=== PATIENT | female | born 1985 | race Caucasian/White ===

== ENCOUNTER 2017-09-15 22:50 | Observation (INO) | payer OTHER ==
[2017-09-15 22:59] VITALS: RESP 16
[2017-09-16] MEDS ORDERED: NALOXONE 0.4 MG/ML 1 ML VIAL IV PRN (00:08)
--- NOTE | 2017-09-16 00:11 | ED ---
Female Urogenital HPI - General Source: patient Mode of arrival: ambulatory Limitations: no limitations - History of Present Illness Last Menstrual Period: 08/09/17 <Nichole Henderson - Last Filed: 09/16/17 00:30> <Gregory Rivas - Last Filed: 09/20/17 07:58> - General Chief complaint: Vaginal Bleeding Stated complaint: Ectopic Time Seen by Provider: 09/15/17 23:00 - History of Present Illness Initial comments: 32-year-old female patient presented to the emergency department today sent by [facility] for further evaluation of ectopic . Patient is A1, including current . Patient states she did undergo tubal ligation in 2017. Patient reports that she sought treatment at the [facility] today for evaluation of vaginal bleeding since 08/09/2017. Patient states that she has been having painless bleeding since that time. States it was like a normal period however it persisted longer than usual. Patient states that she did have an ultrasound that was concerning for ectopic so she was sent over to [facility] for further evaluation. Patient states she did undergo lab work and transvaginal/ transabdominal ultrasound which did show evidence of ectopic in the left adnexa. Patient Denies any abdominal pain. Denies any dizziness or weakness. Denies any passage of large clots or tissue. Denies any fevers or chills. Patient denies any recent rash, shortness breath, chest pain, abdominal pain, nausea, vomiting, diarrhea, constipation, back pain, numbness, tingling, hematuria, dysuria, urinary urgency, urinary frequency, headache, visual changes , or any other complaints. (Nichole Henderson) - Related Data Home Medications Medication Instructions Recorded Confirmed No Known Home Medications [No 09/15/17 09/15/17 Known Home Medications] Allergies Allergy/AdvReac Type Severity Reaction Status Date / Time No Known Allergies Allergy Verified 09/15/17 23:04 Review of Systems ROS Other: All systems not noted in ROS Statement are negative. <Nichole Henderson - Last Filed: 09/16/17 00:30> ROS Other: All systems not noted in ROS Statement are negative. <Gregory Rivas - Last Filed: 09/20/17 07:58> ROS Statement: Those systems with pertinent positive or pertinent negative responses have been documented in the HPI. Past Medical History Additional Past Medical History / Comment(s): ectopic 2018 History of Any Multi-Drug Resistant Organisms: None Reported Past Surgical History: Section, Tubal Ligation Past Psychological History: No Psychological Hx Reported Smoking Status: Current every day smoker Past Alcohol Use History: None Reported Past Drug Use History: None Reported <Nichole Henderson - Last Filed: 09/16/17 00:30> General Exam Limitations: no limitations General appearance: alert, in no apparent distress, other (This is a well- developed, well-nourished adult female patient in no acute distress. Vital signs upon presentation are temperature 98.6F, pulse 103, respirations 16, blood pressure 124/59, pulse ox 100% on room air.) Eye exam: Present: normal appearance, PERRL, EOMI. Absent: scleral icterus, conjunctival injection, periorbital swelling ENT exam: Present: normal exam, normal oropharynx, mucous membranes moist Respiratory exam: Present: normal lung sounds bilaterally. Absent: respiratory distress, wheezes, rales, rhonchi, stridor Cardiovascular Exam: Present: regular rate, normal rhythm, normal heart sounds. Absent: systolic murmur, diastolic murmur, rubs, gallop, clicks GI/Abdominal exam: Present: soft, normal bowel sounds. Absent: distended, tenderness, guarding, rebound, rigid Neurological exam: Present: alert, oriented X3, CN II-XII intact Psychiatric exam: Present: normal affect, normal mood Skin exam: Present: warm, dry, intact, normal color. Absent: rash <Nichole Henderson - Last Filed: 09/16/17 00:30> Vital Signs 09/15/17 22:54 Temperature 98.6 F Pulse Rate 103 H Respiratory 16 Rate Blood Pressure 124/59 O2 Sat by Pulse 100 Oximetry Medical Decision Making <Nichole Henderson - Last Filed: 09/16/17 00:30> - Lab Data Result diagrams: 09/16/17 07:39 09/16/17 07:39 <Gregory Rivas - Last Filed: 09/20/17 07:58> - Medical Decision Making 32-year-old female patient was transferred here from [facility] for further evaluation of ectopic . Physical examination is unremarkable. Abdomen is soft and nontender. Reports from [facility]'s physician indicate that patient's pelvic examination was unremarkable other than vaginal bleeding. Patient denied any adnexal tenderness during the exam. We did review reports from [facility]: patient's quantitative hCG level was 8096. Hgb/Hct WNL. Ultrasound done today shows gestational sac measuring 16 mm in the left adnexa with a crown-rump length of 7 weeks 1 day or 1 cm. There is no free fluid in the pelvis. Patient vital signs are stable. My attending Dr. Rivas did speak to Dr. Fuentes who agrees to admission. Patient will be kept NPO. Labs will be repeated in the morning. IV fluids provided. (Nichole Henderson) I saw this patient in conjunction with the physician care management assistant. I performed independent history and physical exam. Agree with case management. (Gregory Rivas) Disposition Decision to Admit Reason: Admit from EC Decision Date: 09/16/17 Decision Time: 00:11 <Nichole Henderson - Last Filed: 09/16/17 00:30> <Gregory Rivas - Last Filed: 09/20/17 07:58> Clinical Impression: Ectopic Disposition: ADMITTED IP TO THIS [facility] Condition: Serious
[2017-09-16] MEDS ORDERED: SODIUM CHLORIDE 0.9% 1,000 ML IV SCH (00:15)
[2017-09-16 05:53] VITALS: BP 113/57; PULSE 86; TEMP 97.3; BMI 25.8
[2017-09-16 08:06] LABS: HGB 12.1 gm/dL (11.4-16.0); MCH 29.4 pg (25.0-35.0); MCHC 32.8 g/dL (31.0-37.0); MCV 89.8 fL (80.0-100.0); Mean Platelet Volume 8.8; Platelet Count 181 k/uL (150-450); RBC 4.12 m/uL (3.80-5.40); RDW 12.4 % (11.5-15.5); WBC 5.7 k/uL (3.8-10.6)
[2017-09-16 08:14] LABS: ALT 25 U/L (9-52); AST 16 U/L (14-36); Albumin 3.9 g/dL (3.5-5.0); Alkaline Phosphatase 53 U/L (38-126); Anion Gap 10 mmol/L; Blood Urea Nitrogen 13 mg/dL (7-17); Carbon Dioxide 27 mmol/L (22-30); Chloride 107 mmol/L (98-107); Glucose 90 mg/dL (74-99); Potassium 4.1 mmol/L (3.5-5.1); Sodium 144 mmol/L (137-145); Total Bilirubin 0.4 mg/dL (0.2-1.3); Total Protein 6.1 g/dL (6.3-8.2)
[2017-09-16 08:30] LABS: HCG,Quantitative Serum 4834.7 mIU/mL
--- NOTE | 2017-09-16 09:19 | P.HPOB ---
History of Present Illness H&P Date: 09/16/17 Chief Complaint: Vaginal bleeding, ectopic This is a 32-year-old 5 para 3013 woman with a one-month history of vaginal bleeding. [facility] She was initially evaluated at [facility] at which time she was found to have a beta hCG level of 8096, hemoglobin 13.4. Her history is significant for bilateral tubal ligation at the time of section in 2006. She was transferred to a clear in [facility] for further evaluation and treatment. This morning she reports decreasing vaginal bleeding. She denies abdominal pain , pelvic pain, fevers, chills, nausea, vomiting, dizziness or fatigue. She is hungry. Pelvic ultrasound dated 09/15/2017 shows a uterus measuring 10.1 x 4.8 x 5.7 cm. Right ovary measures 2.2 cm. Left ovary has a 3.5 x 2.7 x 2 cm complex cystic structure with a 10 mm pole. No heart tones. There is no free fluid noted in the pelvis. There is no evidence of intrauterine . This morning her hCG has decreased to approximately 4400. Her hemoglobin remained stable. Review of Systems All systems: negative Past Medical History Past Medical History: No Reported History Additional Past Medical History / Comment(s): ectopic 2018 History of Any Multi-Drug Resistant Organisms: None Reported Past Surgical History: Section, Tubal Ligation Additional Past Surgical History / Comment(s): section 3. Tubal ligation Past Anesthesia/Blood Transfusion Reactions: No Reported Reaction Past Psychological History: No Psychological Hx Reported Smoking Status: Current every day smoker Past Alcohol Use History: None Reported Past Drug Use History: None Reported - Past Family History Father Family Medical History: No Reported History Medications and Allergies Home Medications Medication Instructions Recorded Confirmed Type No Known Home Medications [No 09/15/17 09/15/17 History Known Home Medications] Allergies Allergy/AdvReac Type Severity Reaction Status Date / Time No Known Allergies Allergy Verified 09/15/17 23:04 Exam - Vital Signs Vital signs: Vital Signs Temp Pulse Pulse Resp BP BP Pulse Ox 09/16/17 00:30 97.3 F L 86 16 113/57 100 09/15/17 22:54 98.6 F 103 H 16 124/59 100 Intake and Output 09/15/17 09/16/17 09/16/17 22:59 06:59 14:59 Other: Weight 79.379 kg 79.379 kg This is a very pleasant, comfortable appearing female in no obvious distress. HEENT exam is unremarkable. The lungs are clear and her breathing is unlabored. The heart is of regular rate and rhythm. The abdomen is slim, soft and nontender in all 4 quadrants. There is no rebound, no guarding and no flank pain. She has no active vaginal bleeding. Pelvic examination is deferred. She has no gross neurologic deficits or skin rashes. Results Result Diagrams: 09/16/17 07:39 09/16/17 07:39 Abnormal Lab Results - Last 24 Hours (Table) 09/16/17 Range/Units 07:39 Total Protein 6.1 L (6.3-8.2) g/dL US - abdomen: report reviewed Assessment and Plan (1) Ectopic Current Visit: Yes Status: Acute Code(s): O00.90 - UNSPECIFIED ECTOPIC WITHOUT INTRAUTERINE SNOMED Code(s): 15608134 Plan: This is a 32-year-old 5 para 3013 woman with a left ectopic . She is clinically stable with no evidence of rupture or intra-abdominal bleeding. Her hCG levels have declined from greater than 8000 yesterday to approximately 4400 today. Her hemoglobin is stable. Her clinical exam is benign. The ectopic mass was 3.5 cm in greatest diameter by ultrasound. For these reasons I believe that she is a candidate for medical management of the ectopic with methotrexate. I discussed this in detail with the patient and her . Alternative treatment is laparoscopy with removal of left ectopic . Risks of methotrexate therapy include need for multiple doses of methotrexate, failure of methotrexate therapy, rupture of ectopic . I believe the risk of failure is approximately 10%. Risks of laparoscopy are standard and include bleeding, transfusion, infection, injury to internal structures. We discussed anticipated recovery and activity levels with each choice. Based on this discussion she and her have elected to proceed with methotrexate therapy. She can reliably follow up with all office visits and lab draws. She was counseled on the regarding anticipated side effects including abdominal cramping and nausea and some ongoing vaginal bleeding. She understands that she needs to return to the emergency room with any heavy vaginal bleeding, severe abdominal pain or dizziness or syncopal episodes. I do believe that she would be able to be compliant with outpatient medical management. Time with Patient: Greater than 30
[2017-09-16] MEDS ORDERED: METHOTREXATE SODIUM (PF) 25 MG/ML 2 ML VIAL IM ONE (09:30)
== END 2017-09-16 10:40 | disposition home or self-care (01) ==
LOC: EC 22:50 → 4FBP 09-16 00:22
PROVIDERS: ADMIT Obstetrics & Gynecology; ATTEND Obstetrics & Gynecology
DX: O00.102 Left tubal pregnancy without intrauterine pregnancy (principal); Z98.51 Tubal ligation status; F17.200 Nicotine dependence, unspecified, uncomplicated
CPT/HCPCS: 96372 ×2; 99284 ×2; 80053; 85027; 84702; G0378; J9260

== ENCOUNTER → 2017-09-22 | Outpatient (CLI) | payer SELFPAY ==
[2017-09-22 08:38] LABS: HCT 36.8 % (34.0-46.0); MCH 31.1 pg (25.0-35.0); MCHC 35.2 g/dL (31.0-37.0); MCV 88.2 fL (80.0-100.0); Mean Platelet Volume 8.4; Platelet Count 194 k/uL (150-450); RBC 4.17 m/uL (3.80-5.40); RDW 12.4 % (11.5-15.5); WBC 4.8 k/uL (3.8-10.6)
[2017-09-22 08:56] LABS: ALT 32 U/L (9-52); AST 21 U/L (14-36); Albumin 4.2 g/dL (3.5-5.0); Alkaline Phosphatase 49 U/L (38-126); Anion Gap 12 mmol/L; Blood Urea Nitrogen 10 mg/dL (7-17); Calcium 9.3 mg/dL (8.4-10.2); Carbon Dioxide 27 mmol/L (22-30); Chloride 102 mmol/L (98-107); Glucose 93 mg/dL (74-99); Potassium 4.3 mmol/L (3.5-5.1); Sodium 141 mmol/L (137-145); Total Bilirubin 0.4 mg/dL (0.2-1.3); Total Protein 6.6 g/dL (6.3-8.2)
[2017-09-22 09:09] LABS: HCG,Quantitative Serum 2047.7 mIU/mL
== END | disposition home or self-care (01) ==
LOC: LABWHC1 07:39
PROVIDERS: ATTEND Obstetrics & Gynecology
DX: O00.109 Unspecified tubal pregnancy without intrauterine pregnancy (principal); Z3A.00 Weeks of gestation of pregnancy not specified
CPT/HCPCS: 36415; 80053; 84702; 85027; 86850; 86900; 86901

== ENCOUNTER 2017-09-28 23:11 | Inpatient (IN) | payer OTHER ==
[2017-09-28] MEDS ORDERED: SODIUM CHLORIDE 0.9% 1,000 ML IV ONE ×2 (23:26)
[2017-09-28] MEDS ORDERED: ACETAMINOPHEN IV (For NPO) 1,000 MG in EMPTY BAG 1 BAG IVPB STA (23:31)
[2017-09-28] MEDS ORDERED: fentaNYL (PF) 50 MCG/ML 2 ML AMP IV STA (23:33)
--- NOTE | 2017-09-28 23:37 | ED ---
General Adult HPI - General Chief complaint: Abdominal Pain Stated complaint: Abdomial Pain Time Seen by Provider: 09/28/17 23:15 Source: patient, RN notes reviewed, old records reviewed Mode of arrival: EMS Limitations: no limitations - History of Present Illness Initial comments: This is a 32-year-old female for severe abdominal pain, patient coming in for evaluation regards to severe abdominal pain 1 hour prior to arrival. Patient has known ectopic , given methotrexate 2, ectopic is left-sided. Patient having nausea and vomiting as well 11. Patient did have follow-up appointment tomorrow, started with abdominal pain again 1 hour prior to arrival tonight severe. - Related Data Home Medications Medication Instructions Recorded Confirmed No Known Home Medications [No 09/15/17 09/15/17 Known Home Medications] Allergies Allergy/AdvReac Type Severity Reaction Status Date / Time No Known Allergies Allergy Verified 09/15/17 23:04 Review of Systems ROS Statement: Those systems with pertinent positive or pertinent negative responses have been documented in the HPI. ROS Other: All systems not noted in ROS Statement are negative. Past Medical History Past Medical History: No Reported History Additional Past Medical History / Comment(s): ectopic 2018 History of Any Multi-Drug Resistant Organisms: None Reported Past Surgical History: Section, Tubal Ligation Additional Past Surgical History / Comment(s): section 3. Tubal ligation Past Anesthesia/Blood Transfusion Reactions: No Reported Reaction Past Psychological History: No Psychological Hx Reported Smoking Status: Current every day smoker Past Alcohol Use History: None Reported Past Drug Use History: None Reported - Past Family History Father Family Medical History: No Reported History General Exam Limitations: no limitations General appearance: alert, anxious, in distress Head exam: Present: atraumatic, normocephalic, normal inspection Eye exam: Present: normal appearance, PERRL, EOMI. Absent: scleral icterus, conjunctival injection, periorbital swelling ENT exam: Present: normal exam, mucous membranes moist Neck exam: Present: normal inspection. Absent: tenderness, meningismus, lymphadenopathy Respiratory exam: Present: normal lung sounds bilaterally. Absent: respiratory distress, wheezes, rales, rhonchi, stridor Cardiovascular Exam: Present: normal rhythm, tachycardia, normal heart sounds. Absent: systolic murmur, diastolic murmur, rubs, gallop, clicks GI/Abdominal exam: Present: distended, tenderness, guarding, normal bowel sounds. Absent: rebound, rigid Extremities exam: Present: normal inspection, full ROM, normal capillary refill. Absent: tenderness, pedal edema, joint swelling, calf tenderness Back exam: Present: normal inspection Neurological exam: Present: alert, oriented X3, CN II-XII intact Psychiatric exam: Present: normal affect, normal mood Skin exam: Present: warm, dry, intact, normal color. Absent: rash Course Vital Signs 09/28/17 09/28/17 09/28/17 23:15 23:40 23:47 Temperature 95.5 F L 97.8 F Pulse Rate 91 68 Respiratory 26 H 20 Rate Blood Pressure 85/52 113/64 O2 Sat by Pulse 100 100 Oximetry 09/28/17 09/29/17 23:57 00:27 Temperature 95.0 F L Pulse Rate 62 76 Respiratory 18 16 Rate Blood Pressure 101/62 97/55 O2 Sat by Pulse 100 100 Oximetry - Reevaluation(s) Reevaluation #1: 0000 Spoke with on-call DIRECTOR OF MARKETING, Dr. Scanlon for Dr. Fuentes, aware of patient, RN way into emergency room to see patient for evaluation. High likelihood ruptured ectopic Reevaluation #2: 09/29/17 00:28 Ultrasound evaluation being done at bedside, positive free fluid Reevaluation #3: 09/29/17 00:28 Operating room team is called in to ER as well as speaking with on-call anesthesiology EKG Findings - EKG Comments: EKG Findings:: EKG shows normal sinus rhythm rate of 65, AR 126, QRS 62, QTc 445 Medical Decision Making - Medical Decision Making 32 female the ER for evaluation of severe abdominal pain, ruptured ectopic , patient will be taken to operating room, blood pressure is labile, patient given fluid bolus here in the ER, type and screen ordered, current hemoglobin 12 - Lab Data Result diagrams: 09/28/17 23:40 09/28/17 23:27 Lab Results 09/28/17 09/28/17 09/28/17 Range/Units 23:27 23:27 23:40 WBC 13.2 H (3.8-10.6) k/uL RBC 4.00 (3.80-5.40) m/uL Hgb 12.0 (11.4-16.0) gm/dL Hct 35.4 (34.0-46.0) % MCV 88.3 (80.0-100.0) fL MCH 30.1 (25.0-35.0) pg MCHC 34.1 (31.0-37.0) g/dL RDW 12.6 (11.5-15.5) % Plt Count 225 (150-450) k/uL Neutrophils % 76 % Lymphocytes % 18 % Monocytes % 3 % Eosinophils % 2 % Basophils % 0 % Neutrophils # 10.0 H (1.3-7.7) k/uL Lymphocytes # 2.4 (1.0-4.8) k/uL Monocytes # 0.4 (0-1.0) k/uL Eosinophils # 0.3 (0-0.7) k/uL Basophils # 0.0 (0-0.2) k/uL PT 10.3 (9.0-12.0) sec INR 1.1 (<1.2) APTT 21.8 L (22.0-30.0) sec Sodium 143 (137-145) mmol/L Potassium 4.5 (3.5-5.1) mmol/L Chloride 106 (98-107) mmol/L Carbon Dioxide 22 (22-30) mmol/L Anion Gap 15 mmol/L BUN 18 H (7-17) mg/dL Creatinine 0.70 (0.52-1.04) mg/dL Est GFR (CKD-EPI)AfAm >90 (>60 ml/min/1.73 sqM) Est GFR (CKD-EPI)NonAf >90 (>60 ml/min/1.73 sqM) Glucose 168 H (74-99) mg/dL Calcium 9.7 (8.4-10.2) mg/dL Total Bilirubin 0.2 (0.2-1.3) mg/dL AST 18 (14-36) U/L ALT 30 (9-52) U/L Alkaline Phosphatase 62 (38-126) U/L Total Protein 6.3 (6.3-8.2) g/dL Albumin 4.1 (3.5-5.0) g/dL HCG, Quant 646.1 mIU/mL - Radiology Data Radiology results: report reviewed (Ultrasound positive positive free fluid), image reviewed Critical Care Time Critical Care Time: Yes Total Critical Care Time: 31 Disposition Clinical Impression: Ectopic , Ruptured ectopic Disposition: ADMITTED IP TO THIS HOSP Condition: Critical Referrals: None,Stated [Primary Care Provider] - 1-2 days
[2017-09-28 23:46] LABS: Basophils % (A) 0 %; Eosinophils # (A) 0.3 k/uL (0-0.7); Eosinophils % (A) 2 %; HCT 35.4 % (34.0-46.0); Lymphocytes # (A) 2.4 k/uL (1.0-4.8); Lymphocytes % (A) 18 %; MCH 30.1 pg (25.0-35.0); MCHC 34.1 g/dL (31.0-37.0); MCV 88.3 fL (80.0-100.0); Mean Platelet Volume 8.9; Monocytes # (A) 0.4 k/uL (0-1.0); Monocytes % (A) 3 %; Neutrophils % (A) 76 %; Platelet Count 225 k/uL (150-450); RDW 12.6 % (11.5-15.5); WBC 13.2 k/uL (3.8-10.6)
[2017-09-29 00:02] LABS: ALT 30 U/L (9-52); AST 18 U/L (14-36); Albumin 4.1 g/dL (3.5-5.0); Anion Gap 15 mmol/L; Blood Urea Nitrogen 18 mg/dL (7-17); Calcium 9.7 mg/dL (8.4-10.2); Carbon Dioxide 22 mmol/L (22-30); Chloride 106 mmol/L (98-107); Glucose 168 mg/dL (74-99); Potassium 4.5 mmol/L (3.5-5.1); Sodium 143 mmol/L (137-145); Total Bilirubin 0.2 mg/dL (0.2-1.3); Total Protein 6.3 g/dL (6.3-8.2)
[2017-09-29 00:13] LABS: INR 1.1 (<1.2); Prothrombin Time 10.3 sec (9.0-12.0)
[2017-09-29 00:16] LABS: Alkaline Phosphatase 62 U/L (38-126)
[2017-09-29 00:18] LABS: HCG,Quantitative Serum 646.1 mIU/mL
[2017-09-29 00:19] LABS: Partial Thromboplastin Time 21.8 sec (22.0-30.0)
--- NOTE | 2017-09-29 00:53 | US ---
EXAMINATION TYPE: US transvaginal DATE OF EXAM: 09/29/2017 COMPARISON: NONE CLINICAL HISTORY: Pain. Pain and bleeding since 08/09/2017 had a positive lt ectopic on 09/15/2017 [facility]. Came to here next day and given 2 doses of methotrexate. TECHNIQUE: Transvaginal (TV). EXAM MEASUREMENTS: Uterus: 9.2 x 4.6 x 5.3 cm Endometrial Stripe: Borders ill defined cm 1. Uterus: Anteverted 2. Endometrium: Obscured by overlying bowel gas 3. Right Ovary: Obscured by overlying bowel gas 4. Left Ovary: Obscured by overlying bowel gas 5. Bilateral Adnexa: Excessive bowel visualized 6. Posterior cul-de-sac: Fluid visualized. Bilateral ovaries not seen due to overlying bowel gas. IMPRESSION: No adnexal mass or free fluid. No evidence of uterine mass. Endometrial stripe is poorly defined and this could relate to the presence of fibroids.
[2017-09-29] MEDS ORDERED: SODIUM CHLORIDE 0.9% 1,000 ML IV ONE ×2 (01:11→01:15)
--- NOTE | 2017-09-29 01:14 | P.HPOB ---
History of Present Illness H&P Date: 09/29/17 Chief Complaint: severe abdomenal pain This is a 32-year-old 5 para 3013 with a known left ectopic diagnosed 2 weeks ago at another institution. Patient was treated with methotrexate protocol. She presents with severe global abdominal pain which began at approximately 9:30 PM, and was accompanied by emesis. The pain as 10 out of 10. She has had intermittent vaginal bleeding almost constantly since August 09. She is lightheaded and dizzy. Past medical history is essentially negative. Past surgical history significant for section 2003, 2005, 2006 with tubal ligation at another institution. In addition she has had a D&C in the past for miscarriage. Current medications none. ALLERGIES none known. Social history patient smoked for approximately 10 years one to one half pack per day. 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 She denies alcohol or drug use. Family history is essentially noncontributory. On exam this is a pleasant white female, 5 foot 9 inches, 170 pounds, blood pressure 97/55, pulse 76. The general physical exam reveals 2 tattoos, 1 on the anterior left rib cage and one on the right wrist. She has pierced ears but no other body piercings. HEENT exam is negative. Chest is clear in all huerta anteriorly and posteriorly. Cardiac exam reveals regular rate and rhythm. The abdomen is distended, rigid, with rebound and guarding. Extremities reveal no edema, there are good peripheral pulses. Hemoglobin is 12. Ultrasound at the bedside reveals evidence of intraperitoneal fluid, good blood flow and anatomy on the right ovary, left adnexal region consistent with ruptured ectopic. Uterus is unremarkable sonographically. Impression: Suspected ruptured left ectopic with surgical abdomen, suspect hemoperitoneum. Plan: I discussed with the patient and her Judd the urgent nature of her situation. We will proceed with exploratory laparotomy, possible left salpingotomy, possible left salpingectomy, possible left salpingo-oophorectomy. I will perform an exam of the right tube and re-ligate it if needed. Patient is aware of the risks of surgery to include but not be exclusive of bleeding, infection, perforation or damage to bowel, bladder, blood vessels, ureters or any other pelvic or abdominal organs. The risks of anesthesia including aspiration, nerve damage and have all been reviewed. The risks of blood transfusion have also been discussed, potential exposure to infectious diseases including hepatitis and HIV are unlikely but possible. All questions have been answered. Operating room team has been called and are present, anesthesia aware. Review of Systems Constitutional: Reports as per HPI Past Medical History Past Medical History: No Reported History Additional Past Medical History / Comment(s): ectopic 2018 History of Any Multi-Drug Resistant Organisms: None Reported Past Surgical History: Section, Tubal Ligation Additional Past Surgical History / Comment(s): section 3. Tubal ligation Past Anesthesia/Blood Transfusion Reactions: No Reported Reaction Past Psychological History: No Psychological Hx Reported Smoking Status: Current every day smoker Past Alcohol Use History: None Reported Past Drug Use History: None Reported - Past Family History Father Family Medical History: No Reported History Medications and Allergies Home Medications Medication Instructions Recorded Confirmed Type No Known Home Medications [No 09/15/17 09/15/17 History Known Home Medications] Allergies Allergy/AdvReac Type Severity Reaction Status Date / Time No Known Allergies Allergy Verified 09/15/17 23:04 Exam - Vital Signs Vital signs: Vital Signs Temp Pulse Resp BP Pulse Ox 09/29/17 00:55 87 18 90/52 94 L 09/29/17 00:27 95.0 F L 76 16 97/55 100 09/28/17 23:57 62 18 101/62 100 09/28/17 23:47 68 20 113/64 100 09/28/17 23:40 97.8 F 09/28/17 23:15 95.5 F L 91 26 H 85/52 100 Intake and Output 09/28/17 09/28/17 09/29/17 14:59 22:59 06:59 Other: Voiding Method Toilet Weight 77.111 kg See dictation under HPI please Results Result Diagrams: 09/28/17 23:40 09/28/17 23:27 Abnormal Lab Results - Last 24 Hours (Table) 09/28/17 09/28/17 09/28/17 Range/Units 23:27 23:27 23:27 WBC (3.8-10.6) k/uL Neutrophils # (1.3-7.7) k/uL APTT 21.8 L (22.0-30.0) sec BUN 18 H (7-17) mg/dL Glucose 168 H (74-99) mg/dL Crossmatch See Detail 09/28/17 Range/Units 23:40 WBC 13.2 H (3.8-10.6) k/uL Neutrophils # 10.0 H (1.3-7.7) k/uL APTT (22.0-30.0) sec BUN (7-17) mg/dL Glucose (74-99) mg/dL Crossmatch Assessment and Plan Plan: Exploratory laparotomy, surgery is indicated, please see details under dictation. Time with Patient: Less than 30
[2017-09-29] MEDS ORDERED: fentaNYL (PF) 50 MCG/ML 2 ML AMP ONE (01:15)
[2017-09-29] MEDS ORDERED: ROCURONIUM BROMIDE 10 MG/ML 10 ML VIAL IV ONE (01:15)
[2017-09-29] MEDS ORDERED: ALBUMIN HUMAN 5% 250 ML BOTTLE IVPB ONE (01:15)
[2017-09-29] MEDS ORDERED: LIDOCAINE 1% INJ 10MG/ML (20 ML MDV) ONE (01:15)
[2017-09-29] MEDS ORDERED: SUCCINYLCHOLINE CHLORIDE 100 MG/5 ML SYR IV ONE (01:15)
[2017-09-29] MEDS ORDERED: NEOSTIGMINE 1 MG/ML 10 ML VIAL ONE (01:15)
[2017-09-29] MEDS ORDERED: SODIUM CHLORIDE 0.9% 800 ML IV ONE (01:15)
[2017-09-29] MEDS ORDERED: PROPOFOL 10 MG/ML 20 ML VIAL IV ONE (01:15)
[2017-09-29] MEDS ORDERED: MIDAZOLAM 2 MG/2 ML VIAL ONE (01:15)
[2017-09-29] MEDS ORDERED: ceFAZolin 1,000 MG VIAL ONE (01:15)
[2017-09-29] MEDS ORDERED: GLYCOPYRROLATE 0.2 MG/ML 2 ML VIAL ONE (01:15)
[2017-09-29] MEDS ORDERED: SODIUM CHLORIDE 0.9% 100 ML with ceFAZolin 2,000 MG IV ONE ×2 (01:20)
[2017-09-29] MEDS ORDERED: LACTATED RINGERS 1,000 ML IV ONE ×3 (01:20→02:59)
[2017-09-29] MEDS ORDERED: ONDANSETRON 4 MG/2 ML VIAL IVP ONE (02:11)
[2017-09-29] MEDS ORDERED: ONDANSETRON 4 MG/2 ML VIAL IVP PRN (02:13)
[2017-09-29] MEDS ORDERED: IBUPROFEN 600 MG TAB PO PRN (02:13)
[2017-09-29] MEDS ORDERED: diphenhydrAMINE 50 MG/ML 1 ML VIAL IVP PRN (02:13)
[2017-09-29] MEDS ORDERED: METOCLOPRAMIDE 5 MG/ML 2 ML VIAL IVP PRN (02:13)
--- NOTE | 2017-09-29 02:13 | P.OP ---
Date of Procedure: 09/29/17 Preoperative Diagnosis: Suspected ruptured left ectopic Postoperative Diagnosis: Ruptured left ectopic , hemoperitoneum Procedure(s) Performed: Exploratory laparotomy, copious irrigation of the pelvis and abdomen, left salpingectomy area Surgeon: Lori Prince Senior Software Quality Analyst #1: Haroon Helton Estimated Blood Loss (ml): 2,000 IV fluids (ml): 2,000 Urine output (ml): 100 Pathology: other (Left fallopian tube) Condition: stable Disposition: PACU Description of Procedure: Patient is brought to the operating room where a general anesthetic is administered. She is given 2 g of Kefzol prophylactically. The abdomen is prepped and draped in usual sterile fashion, Rutledge placed to direct drainage. The appropriate timeout is performed to assure proper patient and procedural identification. A low transverse skin incision is made over the site of the previous section scar. This was taken down to the subcutaneous tissue to the fascia. Fascia is isolated, scored and extended bilaterally with curved Goss scissors. The peritoneum is next identified and incised. Upon opening the peritoneal cavity a large amount of blood and clot is encountered. This is suctioned and evacuated. The uterus is identified, and a [place] clamp is used on the left round ligament. The left fallopian tube is brought into the operative suite and is noted to have a ruptured ectopic. It was clamped across with Juanito clamps and removed in its entirety, and sent to pathology. 0 Vicryl suture is used on the pedicle for excellent reapproximation and hemostasis. The left ovary appears normal to inspection. The uterus itself is small, smooth, and unremarkable. Inspection of the right tube reveals a missing portion of tube, consistent with history of previous tubal ligation. The right ovary also appears normal. The pelvis is now generously irrigated with sterile saline. A total estimated blood loss of 2000 mL is noted. The left adnexal region is once again visualized and noted to be hemostatically intact. Peritoneum was allowed to close by secondary intention. Fascia is closed in a running stitch of 0 Vicryl suture. Subcutaneous tissue is clean and dry. The skin is closed with 4-0 undyed Monocryl. Steri-Strips and Mastisol are applied to the wound. Patient's vital signs are stable upon leaving the operating room , pulse 63, blood pressure 94/49, 100% O2 saturation. All sponge needle and enhancement counts are correct at the end of the procedure. Patient is given Toradol in recovery room. Hemoglobin is ordered in recovery room as well, 2 units of blood are typed and ready to administer if needed. Albumin is given prior to leaving the OR per the anesthesia staff.
[2017-09-29] MEDS ORDERED: NALOXONE 0.4 MG/ML 1 ML VIAL IV PRN (02:22)
[2017-09-29] MEDS ORDERED: KETOROLAC 30 MG/ML 1 ML VIAL IVP ONE (02:22)
[2017-09-29] MEDS ORDERED: MORPHINE PCA 30 MG/30 ML SYRINGE IV PRN (02:22)
[2017-09-29] MEDS: MEPERIDINE 50 MG/ML SYRINGE IVP ONE ×2 (02:42→02:52)
[2017-09-29 02:47] LABS: HCT 21.7 % (34.0-46.0); MCH 30.2 pg (25.0-35.0); MCHC 32.6 g/dL (31.0-37.0); MCV 92.5 fL (80.0-100.0); Mean Platelet Volume 8.9; Platelet Count 136 k/uL (150-450); RBC 2.35 m/uL (3.80-5.40); RDW 12.6 % (11.5-15.5); WBC 12.8 k/uL (3.8-10.6)
[2017-09-29 02:57] LABS: HGB 7.1 gm/dL (11.4-16.0)
[2017-09-29 04:38] LABS: Appearance,Urine Clear (Clear); Bilirubin,Urine Negative (Negative); Blood,Urine Negative (Negative); Color,Urine Yellow; Glucose,Urine (UA) Negative (Negative); Ketones,Urine 1+ (Negative); Leukocyte Esterase,Urine Negative (Negative); Nitrite,Urine Negative (Negative); PH, Urine 5.5 (5.0-8.0); Protein,Urine Trace (Negative); Specific Gravity,Urine 1.027 (1.001-1.035); Urobilinogen,Urine <2.0 mg/dL (<2.0)
--- NOTE | 2017-09-29 08:08 | P.PN ---
Subjective Progress Note Date: 09/29/17 Patient very nauseated, still lightheaded. Objective - Vital Signs Vital signs: Vital Signs Temp 97.7 F 09/29/17 06:08 Pulse 78 09/29/17 06:08 Resp 18 09/29/17 06:08 BP 114/65 09/29/17 05:38 Pulse Ox 100 09/29/17 06:08 Intake & Output 09/28/17 09/29/17 09/29/17 18:59 06:59 18:59 Intake Total 2840 Output Total 2200 Balance 640 Weight 77.111 kg Intake: IV 2600 Oral 240 Output: Urine 200 Estimated Blood Loss 2000 Other: Voiding Method Indwelling Catheter - Constitutional General appearance: Present: average body habitus, cooperative - EENT Eyes: Present: PERRLA ENT: Present: hearing grossly normal - Neck Neck: Present: normal ROM - Respiratory Respiratory: bilateral: CTA - Cardiovascular Rhythm: regular - Gastrointestinal General gastrointestinal: Present: decreased bowel sounds - Integumentary Integumentary Comment(s): Incision clean and dry, intact. - Neurologic Neurologic: Present: CNII-XII intact - Musculoskeletal Musculoskeletal: Present: generalized weakness - Psychiatric Psychiatric: Present: A&O x's 3, appropriate affect, intact judgment & insight - Labs CBC & Chem 7: 09/29/17 02:25 09/28/17 23:27 Labs: Abnormal Lab Results - Last 24 Hours (Table) 09/28/17 09/28/17 09/28/17 Range/Units 23:27 23:27 23:27 WBC (3.8-10.6) k/uL RBC (3.80-5.40) m/uL Hgb (11.4-16.0) gm/dL Hct (34.0-46.0) % Plt Count (150-450) k/uL Neutrophils # (1.3-7.7) k/uL APTT 21.8 L (22.0-30.0) sec BUN 18 H (7-17) mg/dL Glucose 168 H (74-99) mg/dL Urine Protein (Negative) Urine Ketones (Negative) Crossmatch See Detail 09/28/17 09/29/17 09/29/17 Range/Units 23:40 02:25 04:05 WBC 13.2 H 12.8 H (3.8-10.6) k/uL RBC 2.35 L (3.80-5.40) m/uL Hgb 7.1 L D (11.4-16.0) gm/dL Hct 21.7 L (34.0-46.0) % Plt Count 136 L (150-450) k/uL Neutrophils # 10.0 H (1.3-7.7) k/uL APTT (22.0-30.0) sec BUN (7-17) mg/dL Glucose (74-99) mg/dL Urine Protein Trace H (Negative) Urine Ketones 1+ H (Negative) Crossmatch Assessment and Plan Plan: Recheck CBC 6 hours prior to the last blood draw. Consider transfusion of packed red blood cells pending patient's progress this morning. Advance activity. Time with Patient: Less than 30
[2017-09-29 10:33] LABS: Basophils % (A) 0 %; Eosinophils # (A) 0.1 k/uL (0-0.7); Eosinophils % (A) 1 %; HCT 21.8 % (34.0-46.0); HGB 7.1 gm/dL (11.4-16.0); Lymphocytes # (A) 0.7 k/uL (1.0-4.8); Lymphocytes % (A) 6 %; MCH 30.3 pg (25.0-35.0); MCHC 32.9 g/dL (31.0-37.0); MCV 92.3 fL (80.0-100.0); Mean Platelet Volume 8.4; Monocytes # (A) 0.3 k/uL (0-1.0); Monocytes % (A) 3 %; Neutrophils # (A) 9.4 k/uL (1.3-7.7); Neutrophils % (A) 89 %; Platelet Count 162 k/uL (150-450); RBC 2.36 m/uL (3.80-5.40); RDW 12.5 % (11.5-15.5); WBC 10.6 k/uL (3.8-10.6)
[2017-09-29] MEDS: Acetaminophen-Codeine 300-30mg TAB PO PRN ×2 (14:08→20:40)
[2017-09-29] MEDS: KETOROLAC 30 MG/ML 1 ML VIAL IVP PRN (16:47)
[2017-09-30] MEDS: KETOROLAC 30 MG/ML 1 ML VIAL IVP PRN ×2 (00:01→06:25)
[2017-09-30 00:15] LABS: Basophils % (A) 0 %; Eosinophils # (A) 0.1 k/uL (0-0.7); Eosinophils % (A) 1 %; HCT 20.1 % (34.0-46.0); Lymphocytes # (A) 2.1 k/uL (1.0-4.8); Lymphocytes % (A) 22 %; MCH 30.1 pg (25.0-35.0); MCHC 33.7 g/dL (31.0-37.0); MCV 89.3 fL (80.0-100.0); Monocytes # (A) 0.5 k/uL (0-1.0); Monocytes % (A) 5 %; Neutrophils # (A) 6.7 k/uL (1.3-7.7); Neutrophils % (A) 71 %; Platelet Count 132 k/uL (150-450); RBC 2.25 m/uL (3.80-5.40); RDW 12.9 % (11.5-15.5); WBC 9.4 k/uL (3.8-10.6)
[2017-09-30 00:29] LABS: HGB 6.8 gm/dL (11.4-16.0)
[2017-09-30] MEDS: Acetaminophen-Codeine 300-30mg TAB PO PRN ×2 (04:42→08:54)
[2017-09-30 07:55] LABS: Basophils % (A) 0 %; Eosinophils # (A) 0.2 k/uL (0-0.7); Eosinophils % (A) 3 %; Lymphocytes # (A) 2.1 k/uL (1.0-4.8); Lymphocytes % (A) 33 %; MCH 29.9 pg (25.0-35.0); MCHC 33.6 g/dL (31.0-37.0); Mean Platelet Volume 8.8; Monocytes # (A) 0.4 k/uL (0-1.0); Monocytes % (A) 5 %; Neutrophils # (A) 3.7 k/uL (1.3-7.7); Neutrophils % (A) 58 %; Platelet Count 128 k/uL (150-450); RBC 2.24 m/uL (3.80-5.40); RDW 12.9 % (11.5-15.5); WBC 6.5 k/uL (3.8-10.6)
[2017-09-30 08:06] LABS: HCT 19.9 % (34.0-46.0); HGB 6.7 gm/dL (11.4-16.0)
--- NOTE | 2017-09-30 09:02 | P.DS ---
Providers Date of admission: 09/29/17 01:11 Expected date of discharge: 09/30/17 Attending physician: Lori Prince Primary care physician: Stated None Hospital Course: This is a 32-year-old white female 4 para 3013, status post tubal ligation in 2006. Patient presented to another institution 2 weeks ago with a left ectopic , and was treated with methotrexate IM. She had followed the protocol since that time, and beta hCG levels have been declining. However , she presented to our hospital with acute abdominal and pelvic pain, and hemoperitoneum noted sonographically. Diagnosis of ruptured ectopic was made and she was brought to the operating room for exploratory laparotomy. Please see my admitting history and physical for details. Patient was noted to have at least 2 L of blood and clot in the pelvis with a ruptured left ectopic . The left tube was removed without difficulty. The right tube was visualized and noted to be well ligated with at least a 1 inch missing segment. Patient did well intraoperatively. Postoperatively however, she was noted to be quite anemic with a hemoglobin of 7.1, decreased from 12 on admission. In addition, she was lightheaded and dizzy. One unit of packed red blood cells was given. She responded well to the blood products. This morning the incision is clean and dry, intact with Steri-Strips applied. The abdomen is rubber mill tender, however there is no rebound or guarding. She is feeling stronger, and steady on her feet. She is tolerating regular food and passing flatus. She has showered. Her chest is clear in all huerta in the extremities reveal a very scant amount of edema, likely secondary to the fluid hydration given postoperatively. Patient is judged to be in good condition for discharge home. She will use [id number]-[id number] ibuprofen products as needed for pain, 200 mg pills, 3 every 6 hours as needed. This may be alternated with extra strength Tylenol, 2 pills every 4-6 hours. I've asked her to call me with any lightheadedness or dizziness, with any redness or drainage of the incision, or with any difficulties or concerns. She will follow-up with me in the office in 2 weeks and will call for that appointment. She will continue take an iron supplement daily as well as a woman's multivitamin. No driving, no intercourse , no heavy lifting for 2 weeks. Patient Condition at Discharge: Good Plan - Discharge Summary Discharge Rx Participant: No New Discharge Prescriptions: No Action Ibuprofen [Motrin Ib] 800 mg PO Q6H PRN PRN Reason: Pain Primatene Tabs 2 tab PO DAILY Discharge Medication List Ibuprofen [Motrin Ib] 800 mg PO Q6H PRN 09/29/17 [History] Primatene Tabs 2 tab PO DAILY 09/29/17 [History] Follow up Appointment(s)/Referral(s): Lori Prince MD [STAFF PHYSICIAN] - 2 Weeks None,Stated [Primary Care Provider] - 1-2 Days
[2017-09-30 11:12] VITALS: BP 105/66; PULSE 73; RESP 19; TEMP 98.7
== END 2017-09-30 11:20 | disposition home or self-care (01) | DRG 777 ==
LOC: EC 23:11 → 6SEL 09-29 01:11 → 6PED 09-29 02:04
PROVIDERS: ADMIT Obstetrics & Gynecology; ATTEND Obstetrics & Gynecology
PROC: 10T20ZZ Resection of Products of Conception, Ectopic, Open Approach (ICD-10-PCS; 2017-09-29)
PROC: 30233N1 Transfusion of Nonautologous Red Blood Cells into Peripheral Vein, Percutaneous Approach (ICD-10-PCS; 2017-09-29)
PROC: 3E1M38Z Irrigation of Peritoneal Cavity using Irrigating Substance, Percutaneous Approach (ICD-10-PCS; 2017-09-29)
PROC: 0UT60ZZ Resection of Left Fallopian Tube, Open Approach (ICD-10-PCS; principal; 2017-09-29 00:38)
DX: O00.102 Left tubal pregnancy without intrauterine pregnancy (principal); K66.1 Hemoperitoneum; F17.200 Nicotine dependence, unspecified, uncomplicated; O34.211 Maternal care for low transverse scar from previous cesarean delivery; R11.2 Nausea with vomiting, unspecified; D64.9 Anemia, unspecified; R60.9 Edema, unspecified; Z98.51 Tubal ligation status
CPT/HCPCS: 36415; 76830; 80053; 81003; 84702; 85025; 85027; 85610; 85730; 86850; 86900; 86901; 86920; 87086; 88305; 93005; 96361; 96374; 96375; 99291

== ENCOUNTER 2017-11-27 14:28 | Emergency (ER) | payer OTHER ==
[2017-11-27 14:41] VITALS: BP 132/72; PULSE 94; RESP 20; TEMP 98.1
--- NOTE | 2017-11-27 15:01 | ED ---
Skin/Abscess/FB HPI - General Chief complaint: Skin/Abscess/Foreign Body Stated complaint: Abd.pain Time Seen by Provider: 11/27/17 14:52 Source: patient Mode of arrival: ambulatory Limitations: no limitations - History of Present Illness Initial comments: 32-year-old female presents with skin abscess lesion to her right lower abdomen for the last 4-5 days. Patient did have ectopic emergency surgery and has a scar along that area. Patient states she had a little lump there that was high but never was tender. Patient states she's been tender over the last 4-5 days. No fevers or chills no open sores no discharge no history of MRSA. MD complaint: lesion (Abdominal abscess along the incisional line) Associated symptoms: denies other symptoms Treatments Prior to Arrival: none - Related Data Home Medications Medication Instructions Recorded Confirmed Ibuprofen [Motrin Ib] 800 mg PO Q6H PRN 09/29/17 09/29/17 Primatene Tabs 2 tab PO DAILY 09/29/17 09/29/17 Previous Rx's Medication Instructions Recorded Sulfamethox-Tmp 800-160Mg [Bactrim 1 each PO Q12HR #20 tab 11/27/17 DS 800-160 mg] Allergies Allergy/AdvReac Type Severity Reaction Status Date / Time No Known Allergies Allergy Verified 11/27/17 14:41 Review of Systems ROS Statement: Those systems with pertinent positive or pertinent negative responses have been documented in the HPI. ROS Other: All systems not noted in ROS Statement are negative. Skin: Reports: lesions (Lower abdomen right side incisional line) Past Medical History Past Medical History: Asthma Additional Past Medical History / Comment(s): ectopic 2018 History of Any Multi-Drug Resistant Organisms: None Reported Past Surgical History: Section, Tubal Ligation Additional Past Surgical History / Comment(s): section 3. Tubal ligation Past Anesthesia/Blood Transfusion Reactions: No Reported Reaction Past Psychological History: No Psychological Hx Reported Smoking Status: Current every day smoker Past Alcohol Use History: None Reported Past Drug Use History: None Reported - Past Family History Father Family Medical History: No Reported History General Exam Limitations: no limitations General appearance: alert, in no apparent distress GI/Abdominal exam: Present: soft, normal bowel sounds. Absent: distended, tenderness, guarding, rebound, rigid Psychiatric exam: Present: normal affect, normal mood Skin exam: Present: dry, intact, normal color, other (Abscess-like lesion to the right abdomen incisional line positive erythematous area and tenderness about 1 cm in diameter indurated. Slight fluctuance in the center). Absent: rash Course Vital Signs 11/27/17 14:39 Temperature 98.1 F Pulse Rate 94 Respiratory 20 Rate Blood Pressure 132/72 O2 Sat by Pulse 100 Oximetry Procedures - Incision & Drainage Consent Obtained: verbal consent Site: abdomen Anesthetic Used: lidocaine 1% I&D Cleaning Method: Betadine Sterile Field Used?: Yes Scalpel Used: #11 Needle Aspiration Performed?: No Irrigation Performed?: Yes I&D Drainage Obtained: Pus, Blood Packing: Iodoform Culture Obtained?: Yes Patient Tolerated Procedure: well Medical Decision Making - Medical Decision Making Discussed and evaluated by Dr. Grewal revealed perform an I&D and placed on antibiotics. Patient to follow-up with diesel engine pipe fitter who did the surgery or with family doctor for recheck in one to 2 days. Patient tolerated it well. Patient to remove her 1/4 inch gauze in 1-2 days. Pain to watch for increased redness pain swelling or discharge or fevers. Patient to take antibiotics as prescribed. Await culture results as well. Disposition Clinical Impression: Incisional abscess Disposition: HOME SELF-CARE Condition: Good Instructions: Abscess Incision and Drainage (ED) Prescriptions: Sulfamethox-Tmp 800-160Mg [Bactrim DS 800-160 mg] 1 each PO Q12HR #20 tab Is patient prescribed a controlled substance at d/c from ED?: No When asked, does pt state using other controlled substances?: No If prescribed controlled substance>3 days was MAPS reviewed?: No If opioid is for acute pain is fill amount 7 days or less?: No If Rx opioid, was Start Talking consent form obtained?: No Referrals: None,Stated [Primary Care Provider] - 1-2 days Diego Don MD [STAFF PHYSICIAN] - 1-2 days Time of Disposition: 15:34
== END 2017-11-27 15:51 | disposition home or self-care (01) ==
LOC: EC 14:28
DX: L02.211 Cutaneous abscess of abdominal wall (principal); J45.909 Unspecified asthma, uncomplicated; F17.200 Nicotine dependence, unspecified, uncomplicated; Z79.899 Other long term (current) drug therapy; Z98.890 Other specified postprocedural states
CPT/HCPCS: 10060; 87070; 87077; 87186; 87205; 99284

== ENCOUNTER 2017-11-29 10:35 | Emergency (ER) | payer OTHER ==
--- NOTE | 2017-11-29 12:18 | ED ---
Skin/Abscess/FB HPI - General Chief complaint: Skin/Abscess/Foreign Body Stated complaint: abscess recheck Time Seen by Provider: 11/29/17 12:00 Source: patient, RN notes reviewed Mode of arrival: ambulatory Limitations: no limitations - History of Present Illness Initial comments: This is a 32-year-old female who presents to the emergency department for recheck of abscess. Patient states that on Tuesday she had an abscess of her right lower abdomen drained here in the emergency department. She states that packing was placed and she was instructed to return to the emergency department for removal of packing and recheck of the abscess as she does not have a primary care provider. Patient states that the abscess appears to be healing well. She states that she has been taking her Bactrim as prescribed. She denies any fevers or chills, chest pain or shortness of breath, abdominal pain, nausea or vomiting. - Related Data Home Medications Medication Instructions Recorded Confirmed Ibuprofen [Motrin Ib] 800 mg PO Q6H PRN 09/29/17 11/29/17 Primatene Tabs 2 tab PO DAILY 09/29/17 11/29/17 Sulfamethox-Tmp 800-160Mg [Bactrim 1 tab PO Q12H 11/29/17 11/29/17 DS 800-160 mg] Allergies Allergy/AdvReac Type Severity Reaction Status Date / Time No Known Allergies Allergy Verified 11/29/17 11:23 Review of Systems ROS Statement: Those systems with pertinent positive or pertinent negative responses have been documented in the HPI. ROS Other: All systems not noted in ROS Statement are negative. Past Medical History Past Medical History: Asthma Additional Past Medical History / Comment(s): ectopic 2018 History of Any Multi-Drug Resistant Organisms: None Reported Past Surgical History: Section, Tubal Ligation Additional Past Surgical History / Comment(s): section 3. Tubal ligation Past Anesthesia/Blood Transfusion Reactions: No Reported Reaction Past Psychological History: No Psychological Hx Reported Smoking Status: Current every day smoker Past Alcohol Use History: None Reported Past Drug Use History: None Reported - Past Family History Father Family Medical History: No Reported History General Exam - General Exam Comments Initial Comments: General: Awake and alert, well-developed; in no apparent distress. HEENT: Head atraumatic, normocephalic. Pupils are equal, round and reactive to light. Extraocular movements intact. Oropharynx moist without erythema or exudate. Neck: Supple. Normal ROM. Cardiovascular: Regular rate and rhythm. No murmurs, rubs or gallops. Chest symmetrical. Respiratory: Lungs clear to auscultation bilaterally. No wheezes, rales or rhonchi. Normal respiratory effort with no use of accessory muscles. Abdomen: Soft, non-tender, non-distended. No rigidity, rebound or guarding. Musculoskeletal: Normal ROM, no tenderness bilateral upper and lower extremities. Ambulating normally. Skin: Brea, warm and dry. There is a transverse linear scar lower abdomen. On the upper right portion of the scar is a well-healing abscess. No fluctuance or active drainage. There is an approximately 1 cm in diameter area of induration surrounding a central opening from the I&D. Packing is in place. No tenderness or erythema noted. Neurological: Alert and oriented x3. CN II-XII grossly intact. Speech is fluent and answers are appropriate. No focal neuro deficits. Psychiatric: Normal mood and affect. No overt signs of depression or anxiety noted. Limitations: no limitations (Initial vital signs: Temperature 98.3, pulse 66, respirations 18, blood pressure 117/70, 100% on room air) Course Vital Signs 11/29/17 11:02 Temperature 98.3 F Pulse Rate 66 Respiratory 18 Rate Blood Pressure 117/70 O2 Sat by Pulse 100 Oximetry Medical Decision Making - Medical Decision Making This is a 32-year-old female who presents to the emergency department for recheck of abscess. 2 days ago patient had I&D performed of an abscess on her right lower abdomen. She does state that the erythema and area of tenderness has receded. On physical examination, there is no longer any erythema or fluctuance. There is a small portion of induration. Packing was removed. Abscess appears to be healing well. Vital signs are stable and patient reports no fevers or chills. Recommended following up with Dr. Prince. Recommended continuing warm compresses and to keep the opening only lightly covered. Wound culture results reveal presumptive staph aureus. Instructed to continue taking Bactrim as was prescribed. Patient is in no acute distress and will be discharged home at this time. She is in agreement and voices understanding. All questions answered. Disposition Clinical Impression: Incisional abscess, Abscess re-check Disposition: HOME SELF-CARE Condition: Good Instructions: Abscess (ED) Additional Instructions: Please continue taking Bactrim as prescribed. Please continue warm compresses. Please follow up with Dr. Prince. Please follow up with primary care provider within 1-2 days. Return to emergency department if symptoms should worsen or any concerns arise. Is patient prescribed a controlled substance at d/c from ED?: No Referrals: None,Stated [Primary Care Provider] - 1-2 days Time of Disposition: 12:18
[2017-11-29 12:51] VITALS: BP 125/71; PULSE 72; RESP 16; TEMP 97.7
== END 2017-11-29 12:54 | disposition home or self-care (01) ==
LOC: EC 10:35
DX: Z48.01 Encounter for change or removal of surgical wound dressing (principal); L02.211 Cutaneous abscess of abdominal wall; J45.909 Unspecified asthma, uncomplicated; F17.200 Nicotine dependence, unspecified, uncomplicated; Z79.899 Other long term (current) drug therapy
CPT/HCPCS: 99282

== ENCOUNTER 2021-04-23 22:50 | Emergency (ER) | payer OTHER ==
[2021-04-23 23:04] VITALS: TEMP 98.1
[2021-04-24 00:28] LABS: Basophils % (A) 1 %; Eosinophils # (A) 0.6 k/uL (0-0.7); Eosinophils % (A) 10 %; HCT 37.7 % (34.0-46.0); Lymphocytes # (A) 1.6 k/uL (1.0-4.8); Lymphocytes % (A) 26 %; MCH 33.8 pg (25.0-35.0); MCHC 34.5 g/dL (31.0-37.0); MCV 97.9 fL (80.0-100.0); Mean Platelet Volume 8.9; Monocytes # (A) 0.3 k/uL (0-1.0); Monocytes % (A) 6 %; Neutrophils # (A) 3.5 k/uL (1.3-7.7); Neutrophils % (A) 57 %; Platelet Count 191 k/uL (150-450); RBC 3.85 m/uL (3.80-5.40); RDW 12.2 % (11.5-15.5); WBC 6.2 k/uL (3.8-10.6)
[2021-04-24 00:37] LABS: ALT 42 U/L (4-34); AST 44 U/L (14-36); African American GFR (CKD) >90 (>60 ml/min/1.73 sqM); Albumin 3.9 g/dL (3.5-5.0); Alkaline Phosphatase 96 U/L (38-126); Anion Gap 6 mmol/L; Blood Urea Nitrogen 17 mg/dL (7-17); Calcium 8.8 mg/dL (8.4-10.2); Carbon Dioxide 27 mmol/L (22-30); Chloride 101 mmol/L (98-107); Glucose 76 mg/dL (74-99); INR 0.9 (<1.2); Non-African American GFR(CKD) >90 (>60 ml/min/1.73 sqM); Potassium 4.3 mmol/L (3.5-5.1); Prothrombin Time 9.4 sec (9.0-12.0); Sodium 134 mmol/L (137-145); Total Bilirubin 0.1 mg/dL (0.2-1.3); Total Protein 6.2 g/dL (6.3-8.2)
[2021-04-24 00:38] LABS: Appearance,Urine Clear (Clear); Bilirubin,Urine Negative (Negative); Blood,Urine Negative (Negative); Color,Urine Light Yellow; Glucose,Urine (UA) Negative (Negative); Ketones,Urine Negative (Negative); Leukocyte Esterase,Urine Small (Negative); Nitrite,Urine Negative (Negative); PH, Urine 6.5 (5.0-8.0); Protein,Urine Negative (Negative); Specific Gravity,Urine 1.009 (1.001-1.035); Squamous Epithelial Cell,Urine <1 /hpf (0-4); Urobilinogen,Urine <2.0 mg/dL (<2.0); WBC,Urine 3 /hpf (0-5)
--- NOTE | 2021-04-24 00:43 | XR ---
EXAMINATION TYPE: XR chest 2V DATE OF EXAM: 04/24/2021 COMPARISON: NONE HISTORY: Chest pain TECHNIQUE: 2 views FINDINGS: Heart and mediastinum are normal. Lungs are clear. Diaphragm is normal. Bony thorax is inta ct. IMPRESSION: Normal chest.
--- NOTE | 2021-04-24 01:10 | ED ---
General Adult HPI - General Chief complaint: Extremity Problem,Nontraumatic Stated complaint: Right leg edema 3 days Time Seen by Provider: 04/23/21 23:39 Source: patient Mode of arrival: ambulatory Limitations: no limitations - History of Present Illness Initial comments: 36-year-old female patient presents to the emergency department today for evaluation of lower leg swelling. Patient states that she has had swelling to the bilateral lower extremities worse on the right side for the last 3 days. Patient denies ever having symptoms similar to this. States her legs feel tight. States she does occasionally get pain in the right leg especially near the ankle. Denies any injuries. 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 Denies any shortness of breath. States when she wakes up the morning she does notice that her hands also feel a little swollen and tight. She denies any new medications or stopping medications. Denies any recent travel or long car rides. Denies history of blood clots. Patient denies any recent rash, fever, chills, cough, chest pain, abdominal pain, nausea, vomiting, diarrhea, constipation, back pain, numbness, tingling, dizziness, weakness, hematuria, dysuria, urinary urgency, urinary frequency, headache, visual changes, or any other complaints. - Related Data Home Medications Medication Instructions Recorded Confirmed Ibuprofen [Motrin Ib] 800 mg PO Q6H PRN 09/29/17 11/29/17 Primatene Tabs 2 tab PO DAILY 09/29/17 11/29/17 Sulfamethox-Tmp 800-160Mg [Bactrim 1 tab PO Q12H 11/29/17 11/29/17 DS 800-160 mg] Allergies Allergy/AdvReac Type Severity Reaction Status Date / Time No Known Allergies Allergy Verified 04/23/21 23:04 Review of Systems ROS Statement: Those systems with pertinent positive or pertinent negative responses have been documented in the HPI. ROS Other: All systems not noted in ROS Statement are negative. Past Medical History Past Medical History: Asthma Additional Past Medical History / Comment(s): ectopic 2018 History of Any Multi-Drug Resistant Organisms: None Reported Past Surgical History: Section, Tubal Ligation Additional Past Surgical History / Comment(s): section 3. Tubal ligation Past Anesthesia/Blood Transfusion Reactions: No Reported Reaction Past Psychological History: No Psychological Hx Reported Smoking Status: Current every day smoker Past Alcohol Use History: None Reported Past Drug Use History: None Reported - Past Family History Father Family Medical History: No Reported History General Exam Limitations: no limitations General appearance: alert, in no apparent distress, other (This is a well developed, well nourished adult female in no acute distress. ) ENT exam: Present: normal exam, normal oropharynx, mucous membranes moist Respiratory exam: Present: normal lung sounds bilaterally. Absent: respiratory distress, wheezes, rales, rhonchi, stridor Cardiovascular Exam: Present: regular rate, normal rhythm, normal heart sounds. Absent: systolic murmur, diastolic murmur, rubs, gallop, clicks GI/Abdominal exam: Present: soft, normal bowel sounds. Absent: distended, tenderness, guarding, rebound, rigid Extremities exam: Present: full ROM, normal capillary refill, other (Bilateral lower leg and foot edema. Worse on the right than left. Nonpitting.). Absent: tenderness, pedal edema, joint swelling, calf tenderness Neurological exam: Present: alert, oriented X3, CN II-XII intact Psychiatric exam: Present: normal affect, normal mood Skin exam: Present: warm, dry, intact, normal color. Absent: rash Course Vital Signs 04/23/21 04/24/21 23:00 01:04 Temperature 98.1 F Pulse Rate 79 75 Respiratory 18 20 Rate Blood Pressure 125/77 111/80 O2 Sat by Pulse 100 96 Oximetry EKG Findings - EKG Comments: EKG Findings:: EKG obtained at 00 36 shows normal sinus rhythm with a ventricular rate of 66, PA interval 152, QRS duration 80, QT 406, QTc 425. No evidence of ST elevation or depression. Medical Decision Making - Medical Decision Making 36-year-old female patient presents to the emergency department today for evaluation of lower extremity edema for the last 3 days. Physical examination did reveal swelling to the bilateral lower legs worse on the right. Lungs are clear to auscultation. Vital signs are unremarkable. Chest x-ray negative. Labs reviewed and did reveal very mildly elevated liver enzymes. Urinalysis is negative. Ultrasound of the right leg shows no evidence for DVT. I did discuss findings and results with the patient. We did discuss possibility of venous insufficiency versus idiopathic edema. She is discharged follow with her primary care physician for recheck in 1-2 days. She is given LIDIA hose for compression. Instructed to elevate her legs is much as possible. Return parameters were discussed in detail. She verbalizes understanding and agrees with this plan. Case discussed with my attending Dr. Unger. - Lab Data Result diagrams: 04/24/21 00:07 04/24/21 00:07 Lab Results 04/24/21 04/24/21 04/24/21 Range/Units 00:07 00:07 00:07 WBC 6.2 (3.8-10.6) k/uL RBC 3.85 (3.80-5.40) m/uL Hgb 13.0 (11.4-16.0) gm/dL Hct 37.7 (34.0-46.0) % MCV 97.9 (80.0-100.0) fL MCH 33.8 (25.0-35.0) pg MCHC 34.5 (31.0-37.0) g/dL RDW 12.2 (11.5-15.5) % Plt Count 191 (150-450) k/uL MPV 8.9 Neutrophils % 57 % Lymphocytes % 26 % Monocytes % 6 % Eosinophils % 10 % Basophils % 1 % Neutrophils # 3.5 (1.3-7.7) k/uL Lymphocytes # 1.6 (1.0-4.8) k/uL Monocytes # 0.3 (0-1.0) k/uL Eosinophils # 0.6 (0-0.7) k/uL Basophils # 0.0 (0-0.2) k/uL PT (9.0-12.0) sec INR (<1.2) Sodium 134 L (137-145) mmol/L Potassium 4.3 (3.5-5.1) mmol/L Chloride 101 (98-107) mmol/L Carbon Dioxide 27 (22-30) mmol/L Anion Gap 6 mmol/L BUN 17 (7-17) mg/dL Creatinine 0.78 (0.52-1.04) mg/dL Est GFR (CKD-EPI)AfAm >90 (>60 ml/min/1.73 sqM) Est GFR (CKD-EPI)NonAf >90 (>60 ml/min/1.73 sqM) Glucose 76 (74-99) mg/dL Calcium 8.8 (8.4-10.2) mg/dL Total Bilirubin 0.1 L (0.2-1.3) mg/dL AST 44 H (14-36) U/L ALT 42 H (4-34) U/L Alkaline Phosphatase 96 (38-126) U/L NT-Pro-B Natriuret Pep pg/mL Total Protein 6.2 L (6.3-8.2) g/dL Albumin 3.9 (3.5-5.0) g/dL Urine Color Light Yellow Urine Appearance Clear (Clear) Urine pH 6.5 (5.0-8.0) Ur Specific [place] 1.009 (1.001-1.035) Urine Protein Negative (Negative) Urine Glucose (UA) Negative (Negative) Urine Ketones Negative (Negative) Urine Blood Negative (Negative) Urine Nitrite Negative (Negative) Urine Bilirubin Negative (Negative) Urine Urobilinogen <2.0 (<2.0) mg/dL Ur Leukocyte Esterase Small H (Negative) Urine WBC 3 (0-5) /hpf Ur Squamous Epith Cells <1 (0-4) /hpf 04/24/21 04/24/21 Range/Units 00:07 00:07 WBC (3.8-10.6) k/uL RBC (3.80-5.40) m/uL Hgb (11.4-16.0) gm/dL Hct (34.0-46.0) % MCV (80.0-100.0) fL MCH (25.0-35.0) pg MCHC (31.0-37.0) g/dL RDW (11.5-15.5) % Plt Count (150-450) k/uL MPV Neutrophils % % Lymphocytes % % Monocytes % % Eosinophils % % Basophils % % Neutrophils # (1.3-7.7) k/uL Lymphocytes # (1.0-4.8) k/uL Monocytes # (0-1.0) k/uL Eosinophils # (0-0.7) k/uL Basophils # (0-0.2) k/uL PT 9.4 (9.0-12.0) sec INR 0.9 (<1.2) Sodium (137-145) mmol/L Potassium (3.5-5.1) mmol/L Chloride (98-107) mmol/L Carbon Dioxide (22-30) mmol/L Anion Gap mmol/L BUN (7-17) mg/dL Creatinine (0.52-1.04) mg/dL Est GFR (CKD-EPI)AfAm (>60 ml/min/1.73 sqM) Est GFR (CKD-EPI)NonAf (>60 ml/min/1.73 sqM) Glucose (74-99) mg/dL Calcium (8.4-10.2) mg/dL Total Bilirubin (0.2-1.3) mg/dL AST (14-36) U/L ALT (4-34) U/L Alkaline Phosphatase (38-126) U/L NT-Pro-B Natriuret Pep 99 pg/mL Total Protein (6.3-8.2) g/dL Albumin (3.5-5.0) g/dL Urine Color Urine Appearance (Clear) Urine pH (5.0-8.0) Ur Specific [place] (1.001-1.035) Urine Protein (Negative) Urine Glucose (UA) (Negative) Urine Ketones (Negative) Urine Blood (Negative) Urine Nitrite (Negative) Urine Bilirubin (Negative) Urine Urobilinogen (<2.0) mg/dL Ur Leukocyte Esterase (Negative) Urine WBC (0-5) /hpf Ur Squamous Epith Cells (0-4) /hpf - Radiology Data Radiology results: report reviewed, image reviewed Ultrasound of the right lower extremity is obtained. Report was reviewed in its entirety. Impression by Dr. Lopez shows no evidence of DVT in the right leg. 2 views of the chest are obtained. Report was reviewed in its entirety. Impression by Dr. Lopez shows normal chest. Disposition Clinical Impression: Lower extremity edema Disposition: HOME SELF-CARE Condition: Good Instructions (If sedation given, give patient instructions): Leg Edema (ED) Additional Instructions: Use compression stockings while awake. Keep legs elevated as much as possible. Follow up with your primary care physician for recheck in 1-2 days. Have repeat liver function tests performed. Return to the emergency department for any new, worsening, or concerning symptoms. Is patient prescribed a controlled substance at d/c from ED?: No Referrals: Funmi Baugh MD [Primary Care Provider] - 1-2 days Time of Disposition: 01:42
--- NOTE | 2021-04-24 01:19 | US ---
EXAMINATION TYPE: US venous doppler duplex LE RT DATE OF EXAM: 04/24/2021 1:00 AM COMPARISON: NONE CLINICAL HISTORY: Right leg swelling. Swelling. No hx of DVT. Patient does not take blood thinners. SIDE PERFORMED: Right TECHNIQUE: The lower extremity deep venous system is examined utilizing real time linear array sonog raina with graded compression, doppler sonography and color-flow sonography. VESSELS IMAGED: Common Femoral Vein Deep Femoral Vein Greater Saphenous Vein * Femoral Vein Popliteal Vein Small Saphenous Vein * Proximal Calf Veins (* superficial vessels) Right Leg: No evidence of DVT in veins imaged at this time. IMPRESSION: No evidence of deep vein thrombosis in the right leg.
[2021-04-24 02:02] VITALS: RESP 20
[2021-04-24 02:15] VITALS: BP 116/84; PULSE 74
== END 2021-04-24 02:23 | disposition home or self-care (01) ==
LOC: EC 22:50
DX: R60.0 Localized edema (principal); J45.909 Unspecified asthma, uncomplicated; F17.200 Nicotine dependence, unspecified, uncomplicated; Z98.51 Tubal ligation status
CPT/HCPCS: 36415; 71046; 80053; 81001; 83880; 85025; 85610; 93005; 99284

== ENCOUNTER → 2021-06-17 | Outpatient (CLI) | payer OTHER | END | disposition home or self-care (01) | LOC: LABWHC1 11:27 | PROVIDERS: ATTEND Family Medicine | DX: Z20.822 Contact with and (suspected) exposure to COVID-19 (principal); J02.9 Acute pharyngitis, unspecified | CPT/HCPCS: 87081; 87430; 87502; U0003; C9803 ==

== ENCOUNTER 2022-11-23 08:32 | Emergency (ER) | payer OTHER ==
[2022-11-23 08:37] VITALS: RESP 18; TEMP 98.2
[2022-11-23] MEDS ORDERED: KETOROLAC 15 MG/ML 1 ML VIAL IVP STA ×2 (08:45→11:46)
[2022-11-23] MEDS ORDERED: SODIUM CHLORIDE 0.9% 1,000 ML IV STA (08:45)
[2022-11-23] MEDS ORDERED: ONDANSETRON 4 MG/2 ML VIAL IVP STA (08:45)
[2022-11-23] MEDS ORDERED: SODIUM CHLORIDE 0.9% 500 ML 500 ML IV STA (08:45)
[2022-11-23] MEDS ORDERED: HYDROmorphone 0.5 MG/0.5 ML SYRINGE IVP STA (08:46)
[2022-11-23 09:50] LABS: ALT 15 U/L (4-34); African American GFR (CKD) >90 (>60 ml/min/1.73 sqM); Albumin 4.3 g/dL (3.5-5.0); Anion Gap 19 mmol/L; Blood Urea Nitrogen 19 mg/dL (7-17); Calcium 9.3 mg/dL (8.4-10.2); Carbon Dioxide 20 mmol/L (22-30); Chloride 103 mmol/L (98-107); Glucose 117 mg/dL (74-99); Lipase 171 U/L (23-300); Non-African American GFR(CKD) >90 (>60 ml/min/1.73 sqM); Sodium 142 mmol/L (137-145); Total Bilirubin 0.7 mg/dL (0.2-1.3); Total Protein 7.4 g/dL (6.3-8.2)
--- NOTE | 2022-11-23 09:52 | XR ---
EXAMINATION TYPE: XR KUB DATE OF EXAM: 11/23/2022 9:35 AM INDICATION: Patient age:Female; 37 years old; Reason for study: flank pain; COMPARISON: 06/24/2010 TECHNIQUE: One radiographic view of the abdomen was obtained. FINDINGS: The bowel gas pattern is nonspecific without dilated loops of small or large bowel. There i s no evidence for organomegaly or pneumoperitoneum. The osseous structures are intact. Fecal mater ial and gas are demonstrated throughout the colon and rectum. Right 10 mm calculus projecting over t he kidney. IMPRESSION: Right sided 10 mm calculus projecting over the right kidney. Similar to prior in 2009
[2022-11-23 09:56] LABS: Basophils % (A) 1 %; Eosinophils # (A) 0.1 k/uL (0-0.7); Eosinophils % (A) 3 %; HCT 33.1 % (34.0-46.0); HGB 10.8 gm/dL (11.4-16.0); Lymphocytes # (A) 0.7 k/uL (1.0-4.8); Lymphocytes % (A) 14 %; MCH 31.4 pg (25.0-35.0); MCHC 32.5 g/dL (31.0-37.0); MCV 96.6 fL (80.0-100.0); Mean Platelet Volume 8.9; Monocytes # (A) 0.3 k/uL (0-1.0); Monocytes % (A) 7 %; Neutrophils # (A) 3.4 k/uL (1.3-7.7); Neutrophils % (A) 74 %; Platelet Count 187 k/uL (150-450); RBC 3.43 m/uL (3.80-5.40); RDW 12.8 % (11.5-15.5); WBC 4.7 k/uL (3.8-10.6)
[2022-11-23 09:58] LABS: AST 25 U/L (14-36); Alkaline Phosphatase 57 U/L (38-126); Potassium 3.9 mmol/L (3.5-5.1)
[2022-11-23] MEDS ORDERED: METOCLOPRAMIDE 5 MG/ML 2 ML VIAL IVP STA (10:30)
[2022-11-23 10:41] LABS: Appearance,Urine Cloudy (Clear); Bacteria,Urine Occasional /hpf; Bilirubin,Urine Negative (Negative); Blood,Urine Moderate (Negative); Color,Urine Yellow; Glucose,Urine (UA) Negative (Negative); Ketones,Urine 4+ (Negative); Leukocyte Esterase,Urine Moderate (Negative); Mucus,Urine Rare /hpf; Nitrite,Urine Positive (Negative); Protein,Urine 1+ (Negative); RBC,Urine 58 /hpf (0-5); Squamous Epithelial Cell,Urine 4 /hpf (0-4); Urobilinogen,Urine <2.0 mg/dL (<2.0); WBC,Urine 36 /hpf (0-5)
[2022-11-23 10:49] LABS: Specific Gravity,Urine >1.050 (1.001-1.035)
[2022-11-23] MEDS ORDERED: cefTRIAXone IN SWFI 1,000 MG/10 ML SYRINGE IVP STA (11:15)
--- NOTE | 2022-11-23 11:35 | CT ---
EXAMINATION TYPE: CT abdomen pelvis wo con DATE OF EXAM: 11/23/2022 COMPARISON: 06/24/2010 HISTORY: RLQ pain CT DLP: 518 mGycm Examination of the solid and hollow viscera is limited given the lack of contrast. FINDINGS: LUNG BASES: No evidence for nodule. No evidence for infiltrate. LIVER/GB: Gallbladder hydrops measuring 12.1 cm in length. No definite wall thickening or pericholecy stic fluid. No space-occupying hepatic lesion. PANCREAS: No pancreatic mass identified. No inflammatory process seen. SPLEEN: No evidence for splenomegaly. No intrasplenic lesions seen. ADRENALS: No adrenal nodules identified. No evidence for thickening. KIDNEYS: 9.3 mm calculus midpole right kidney. No additional calculi seen. No hydronephrosis present. BOWEL: There is nonvisualization of the appendix however no inflammatory process is seen within the r ight lower quadrant. High-density material within the colon results in mild streak artifact. No evide nce of bowel obstruction. No inflammatory process. Lymph nodes: No evidence for adenopathy greater than 1 cm. Abdominal aorta: Atheromatous changes seen. No evidence for aneurysm. Genital organs: No significant abnormality. Other: No significant abnormality. IMPRESSION: 1.There is nonvisualization of the appendix however no inflammatory process is seen within the right lower quadrant. 2. Gallbladder hydrops measuring 12.1 cm in length. No definite wall thickening or pericholecystic fl uid. 3. Nonobstructing right-sided nephrolithiasis.
[2022-11-23] MEDS ORDERED: ACET/COD 300 MG/30 MG STARTER PACK 6 TAB BTL PO STA (11:46)
--- NOTE | 2022-11-23 11:51 | ED ---
Nausea/Vomiting/Diarrhea HPI - General Chief complaint: Nausea/Vomiting/Diarrhea Stated complaint: Vomiting Time Seen by Provider: 11/23/22 08:38 Source: patient, RN notes reviewed Mode of arrival: ambulatory Limitations: no limitations - History of Present Illness Initial comments: 37-year-old female presents emergency Department with chief complaint of flank pain, nausea vomiting. Patient states symptoms started last days. Patient states she's had an cold flashes. Patient denies any prior abdominal surgeries. Denies any sick contacts. Patient does admit that she has a history kidney stones. Patient states it somewhat feels similar but she has bilateral lower back, flank pain. Denies any headache or dizziness she has quite a mild dysuria - Related Data Previous Rx's Medication Instructions Recorded Cephalexin [Keflex] 500 mg PO Q8HR #30 cap 11/23/22 Ibuprofen [Motrin] 600 mg PO Q8HR PRN #20 tab 11/23/22 Ondansetron Odt [Zofran Odt] 4 mg PO Q8HR PRN #10 tab 11/23/22 Allergies Allergy/AdvReac Type Severity Reaction Status Date / Time No Known Allergies Allergy Verified 11/23/22 11:26 Review of Systems ROS Statement: Those systems with pertinent positive or pertinent negative responses have been documented in the HPI. ROS Other: All systems not noted in ROS Statement are negative. Past Medical History Past Medical History: Asthma Additional Past Medical History / Comment(s): ectopic 2018 History of Any Multi-Drug Resistant Organisms: None Reported Past Surgical History: Section, Tubal Ligation Additional Past Surgical History / Comment(s): section 3. Tubal ligation Past Anesthesia/Blood Transfusion Reactions: No Reported Reaction Past Psychological History: No Psychological Hx Reported Smoking Status: Current every day smoker Past Alcohol Use History: Occasional Past Drug Use History: None Reported - Past Family History Father Family Medical History: No Reported History General Exam Limitations: no limitations General appearance: alert, in no apparent distress Head exam: Present: atraumatic, normocephalic, normal inspection Respiratory exam: Present: normal lung sounds bilaterally. Absent: respiratory distress, wheezes, rales, rhonchi, stridor Cardiovascular Exam: Present: regular rate, normal rhythm, normal heart sounds. Absent: systolic murmur, diastolic murmur, rubs, gallop, clicks GI/Abdominal exam: Present: soft, normal bowel sounds. Absent: distended, tenderness, guarding, rebound, rigid Back exam: Absent: CVA tenderness (R), CVA tenderness (L) Neurological exam: Present: alert Course Vital Signs 11/23/22 08:33 Temperature 98.2 F Pulse Rate 71 Respiratory 18 Rate Blood Pressure 149/90 O2 Sat by Pulse 99 Oximetry Medical Decision Making - Medical Decision Making Was pt. sent in by a medical professional or institution (, PA, SMALL PIECE CUTTER, urgent care, hospital, or skilled nursing...) When possible be specific @ -No Did you speak to anyone other than the patient for history (EMS, parent, family, police, friend...)? What history was obtained from this source @ -Significant other in the room providing recent history Did you review nursing and triage notes (agree or disagree)? Why? @ -I reviewed and agree with nursing and triage notes Were old charts reviewed (outside hosp., previous admission, EMS record, old EKG, old radiological studies, urgent care reports/EKG's, skilled nursing records)? Report findings @ -No old charts were reviewed Differential Diagnosis (chest pain, altered mental status, abdominal pain women, abdominal pain men, vaginal bleeding, weakness, fever, dyspnea, syncope, headache, dizziness, GI bleed, back pain, seizure, CVA, palpatations, mental health, musculoskeletal)? @ -nDifferential Abdominal Pain Women: Appendicitis, Cholecystitis, diverticulosis, ischemic bowel, pancreatitis, hepatitis, UTI, gastroenteritis, AAA, incarcerated hernia, bowel obstruction, constipation, inflammatory bowel, hepatitis, peptic ulcer disease, splenic infarction, perforated viscus, vulvitis, ovarian torsion, PID, kidney stone, placenta abruption, this is not meant to be an all-inclusive liste EKG interpreted by me (3pts min.). @ -None X-rays interpreted by me (1pt min.). @ -KUB shows nonspecific bowel gas pattern CT interpreted by me (1pt min.). @ -CT abdomen and pelvis shows no evidence of hydronephrosis or stone within the ureter there are noted kidney stone, no other acute process U/S interpreted by me (1pt. min.). @ -None done What testing was considered but not performed or refused? (CT, X-rays, U/S, labs)? Why? @ -None What meds were considered but not given or refused? Why? @ -None Did you discuss the management of the patient with other professionals (professionals i.e. , PA, SMALL PIECE CUTTER, lab, RT, psych nurse, social research assistant, cutter operator tile, teacher, mortgage loan officer, case operator)? Give summary @ -No Was smoking cessation discussed for >3mins.? @ -No Was critical care preformed (if so, how long)? @ -No Were there social determinants of health that impacted care today? How? (Homelessness, low income, unemployed, alcoholism, drug addiction, transportation, low edu. Level, literacy, decrease access to med. care, halfway, rehab)? @ -No Was there de-escalation of care discussed even if they declined (Discuss DNR or withdrawal of care, Hospice)? DNR status @ -No What co-morbidities impacted this encounter? (DM, HTN, Smoking, COPD, CAD, Cancer, CVA, ARF, Chemo, Hep., AIDS, mental health diagnosis, sleep apnea, mo rbid obesity)? @ -Kidney stones Was patient admitted / discharged? Hospital course, mention meds given and route, prescriptions, significant lab abnormalities, going to OR and other pertinent info. @ -Discharge patient has evidence of UTI, pyelonephritis. Patient was given IV fluid hydration, pain control, antibiotics patient discharged with oral antibiotics, antiemetics. There is no evidence of kidney stone complicating current in urinary tract infection. Urine culture, blood culture was drawn. Undiagnosed new problem with uncertain prognosis? @ -No Drug Therapy requiring intensive monitoring for toxicity (Heparin, Nitro, Insulin, Cardizem)? @ -No Were any procedures done? @ -No Diagnosis/symptom? @ -Pyelonephritis Acute, or Chronic, or Acute on Chronic? @ -Acute Uncomplicated (without systemic symptoms) or Complicated (systemic symptoms)? @ -Complicated Side effects of treatment? @ -No Exacerbation, Progression, or Severe Exacerbation? @ -No Poses a threat to life or bodily function? How? (Chest pain, USA, OR, pneumonia, PE, COPD, DKA, ARF, appy, cholecystitis, CVA, Diverticulitis, Homicidal, Suic idal, threat to staff... and all critical care pts) @ -No - Lab Data Result diagrams: 11/23/22 09:22 11/23/22 09:22 Lab Results 11/23/22 11/23/22 11/23/22 Range/Units 09:22 09:22 09:22 WBC 4.7 (3.8-10.6) k/uL RBC 3.43 L (3.80-5.40) m/uL Hgb 10.8 L (11.4-16.0) gm/dL Hct 33.1 L (34.0-46.0) % MCV 96.6 (80.0-100.0) fL MCH 31.4 (25.0-35.0) pg MCHC 32.5 (31.0-37.0) g/dL RDW 12.8 (11.5-15.5) % Plt Count 187 (150-450) k/uL MPV 8.9 Neutrophils % 74 % Lymphocytes % 14 % Monocytes % 7 % Eosinophils % 3 % Basophils % 1 % Neutrophils # 3.4 (1.3-7.7) k/uL Lymphocytes # 0.7 L (1.0-4.8) k/uL Monocytes # 0.3 (0-1.0) k/uL Eosinophils # 0.1 (0-0.7) k/uL Basophils # 0.0 (0-0.2) k/uL Sodium 142 (137-145) mmol/L Potassium 3.9 (3.5-5.1) mmol/L Chloride 103 (98-107) mmol/L Carbon Dioxide 20 L (22-30) mmol/L Anion Gap 19 mmol/L BUN 19 H (7-17) mg/dL Creatinine 0.49 L (0.52-1.04) mg/dL Est GFR (CKD-EPI)AfAm >90 (>60 ml/min/1.73 sqM) Est GFR (CKD-EPI)NonAf >90 (>60 ml/min/1.73 sqM) Glucose 117 H (74-99) mg/dL Calcium 9.3 (8.4-10.2) mg/dL Total Bilirubin 0.7 (0.2-1.3) mg/dL AST 25 (14-36) U/L ALT 15 (4-34) U/L Alkaline Phosphatase 57 (38-126) U/L Total Protein 7.4 (6.3-8.2) g/dL Albumin 4.3 (3.5-5.0) g/dL Lipase 171 (23-300) U/L Urine Color Yellow Urine Appearance Cloudy H (Clear) Urine pH 6.0 (5.0-8.0) Ur Specific [place] >1.050 H (1.001-1.035) Urine Protein 1+ H (Negative) Urine Glucose (UA) Negative (Negative) Urine Ketones 4+ H (Negative) Urine Blood Moderate H (Negative) Urine Nitrite Positive H (Negative) Urine Bilirubin Negative (Negative) Urine Urobilinogen <2.0 (<2.0) mg/dL Ur Leukocyte Esterase Moderate H (Negative) Urine RBC 58 H (0-5) /hpf Urine WBC 36 H (0-5) /hpf Ur Squamous Epith Cells 4 (0-4) /hpf Urine Bacteria Occasional H (None) /hpf Urine Mucus Rare H (None) /hpf Disposition Clinical Impression: Pyelonephritis Disposition: HOME SELF-CARE Condition: Stable Instructions (If sedation given, give patient instructions): Kidney Infection (ED) Additional Instructions: Please return to the Emergency Department if symptoms worsen or any other concerns. Prescriptions: Cephalexin [Keflex] 500 mg PO Q8HR #30 cap Ibuprofen [Motrin] 600 mg PO Q8HR PRN #20 tab PRN Reason: Pain Ondansetron Odt [Zofran Odt] 4 mg PO Q8HR PRN #10 tab PRN Reason: Nausea Is patient prescribed a controlled substance at d/c from ED?: No Referrals: None,Stated [Primary Care Provider] - 1-2 days Time of Disposition: 11:50
[2022-11-23 12:11] VITALS: BP 158/87; PULSE 72
== END 2022-11-23 12:10 | disposition home or self-care (01) ==
LOC: EC 08:32
DX: N12 Tubulo-interstitial nephritis, not specified as acute or chronic (principal); N20.0 Calculus of kidney; J45.909 Unspecified asthma, uncomplicated; F17.200 Nicotine dependence, unspecified, uncomplicated; Z79.899 Other long term (current) drug therapy
CPT/HCPCS: 99285; 96374; 96375 ×4; 96376; 96361; 36415; 80053; 83690; 85025; 81001; 87040; 87086; 87077; 87186; 74018; 74176; J2765; J2405; J0696; J1885; J1170

== ENCOUNTER 2023-02-03 03:44 | Observation (INO) | payer OTHER ==
[2023-02-03] MEDS ORDERED: SODIUM CHLORIDE 0.9% 1,000 ML IV STA (04:03)
[2023-02-03] MEDS ORDERED: ONDANSETRON 4 MG/2 ML VIAL IVP STA (04:03)
[2023-02-03] MEDS ORDERED: HYDROmorphone 0.5 MG/0.5 ML SYRINGE IVP STA (04:04)
--- NOTE | 2023-02-03 04:06 | ED ---
General Adult HPI - General Chief complaint: Abdominal Pain Stated complaint: Recheck Time Seen by Provider: 02/03/23 03:54 Source: patient, RN notes reviewed, old records reviewed Mode of arrival: ambulatory Limitations: no limitations - History of Present Illness Initial comments: 37-year-old female presenting for evaluation of nausea and vomiting. Patient reports mild generalized abdominal pain with more sensation of nausea with multiple episodes of vomiting. She states her symptoms have been present for the past one to 2 days. She states that she's had similar symptoms in the past with kidney infection. She denies urinary symptoms, no dysuria, no urgency or frequency, no hematuria. Patient denies measured fever. - Related Data Previous Rx's Medication Instructions Recorded Cephalexin [Keflex] 500 mg PO Q8HR #30 cap 11/23/22 Ibuprofen [Motrin] 600 mg PO Q8HR PRN #20 tab 11/23/22 Ondansetron Odt [Zofran Odt] 4 mg PO Q8HR PRN #10 tab 11/23/22 Allergies Allergy/AdvReac Type Severity Reaction Status Date / Time No Known Allergies Allergy Verified 02/03/23 03:57 Review of Systems ROS Statement: Those systems with pertinent positive or pertinent negative responses have been documented in the HPI. ROS Other: All systems not noted in ROS Statement are negative. Past Medical History Past Medical History: Asthma Additional Past Medical History / Comment(s): ectopic 2018 History of Any Multi-Drug Resistant Organisms: None Reported Past Surgical History: Section, Tubal Ligation Additional Past Surgical History / Comment(s): section 3. Tubal ligation Past Anesthesia/Blood Transfusion Reactions: No Reported Reaction Past Psychological History: No Psychological Hx Reported Smoking Status: Current every day smoker Past Alcohol Use History: Occasional Past Drug Use History: None Reported - Past Family History Father Family Medical History: No Reported History General Exam Limitations: no limitations General appearance: alert, in distress Head exam: Present: atraumatic, normocephalic Eye exam: Present: normal appearance. Absent: PERRL ENT exam: Present: normal exam Neck exam: Present: normal inspection. Absent: tenderness, meningismus Respiratory exam: Present: normal lung sounds bilaterally. Absent: respiratory distress, wheezes Cardiovascular Exam: Present: regular rate, normal rhythm GI/Abdominal exam: Present: soft. Absent: distended, tenderness, guarding, rebound Extremities exam: Present: normal inspection, normal capillary refill Neurological exam: Present: alert, oriented X3, CN II-XII intact. Absent: motor sensory deficit Skin exam: Present: warm, diaphoretic Course Vital Signs 02/03/23 02/03/23 03:54 05:45 Temperature 98.2 F 98.6 F Pulse Rate 74 77 Respiratory 16 18 Rate Blood Pressure 146/109 134/84 O2 Sat by Pulse 98 97 Oximetry - Reevaluation(s) Reevaluation #1: 02/03/23 06:42 Patient reevaluated, persistent nausea vomiting. Will be placed in observation for IV antibiotics and symptomatic treatment. Medical Decision Making - Medical Decision Making Was pt. sent in by a medical professional or institution (, PA, [employer], urgent care, hospital, or intermediate...) When possible be specific @ -No Did you speak to anyone other than the patient for history (EMS, parent, family, police, friend...)? What history was obtained from this source @ -No Did you review nursing and triage notes (agree or disagree)? Why? @ -I reviewed and agree with nursing and triage notes Were old charts reviewed (outside hosp., previous admission, EMS record, old EKG, old radiological studies, urgent care reports/EKG's, intermediate records)? Report findings @ -No old charts were reviewed Differential Diagnosis (chest pain, altered mental status, abdominal pain women, abdominal pain men, vaginal bleeding, weakness, fever, dyspnea, syncope, headach e, dizziness, GI bleed, back pain, seizure, CVA, palpatations, mental health, musculoskeletal)? @ -[Differential Abdominal Pain Women: Appendicitis, Cholecystitis, diverticulosis, ischemic bowel, pancreatitis, hepatitis, UTI, gastroenteritis, AAA, incarcerated hernia, bowel obstruction, constipation, inflammatory bowel, hepatitis, peptic ulcer disease, splenic infarction, perforated viscus, vulvitis, ovarian torsion, PID, kidney stone, placenta abruption, this is not meant to be an all-inclusive list EKG interpreted by me (3pts min.). @ EKG sinus bradycardia rate of 56, NJ interval 163, QRS duration 75, QTC 407 X-rays interpreted by me (1pt min.). @ -None done CT interpreted by me (1pt min.). @ -None done U/S interpreted by me (1pt. min.). @ -None done What testing was considered but not performed or refused? (CT, X-rays, U/S, labs)? Why? @ -[Inserted abdominal imaging however the patient has no focal tenderness. What meds were considered but not given or refused? Why? @ -None Did you discuss the management of the patient with other professionals (professionals i.e. Dr., PA, [employer], lab, RT, psych nurse, social media specialist, pot builder, teacher, executive vice president and chief financial officer, case preparer and liner)? Give summary @ -Sound physician group has been paged Was smoking cessation discussed for >3mins.? @ -No Was critical care preformed (if so, how long)? @ -No Were there social determinants of health that impacted care today? How? (Homelessness, low income, unemployed, alcoholism, drug addiction, transportation, low edu. Level, literacy, decrease access to med. care, senior living, rehab)? @ -No Was there de-escalation of care discussed even if they declined (Discuss DNR or withdrawal of care, Hospice)? DNR status @ -No What co-morbidities impacted this encounter? (DM, HTN, Smoking, COPD, CAD, Cancer, CVA, ARF, Chemo, Hep., AIDS, mental health diagnosis, sleep apnea, morbid obesity)? @ -None Was patient admitted / discharged? Hospital course, mention meds given and route, prescriptions, significant lab abnormalities, going to OR and other pertinent info. @ -[37-year-old female presenting with nausea vomiting, she does endorse abdominal pain but has no abdominal pain or distention exam. She states she has had similar symptoms in the past with urinary tract infection. Her urinalysis is positive and urine culture is pending. She started on IV ceftriaxone as well as symptomatic treatment for nausea and vomiting. She is acidotic with a CO2 of 12, normal lactic. She is in sinus rhythm. She continues to have vomiting all the emergency department. She will be admitted for symptomatic treatment of dehydration, vomiting, and urinary tract infection. Undiagnosed new problem with uncertain prognosis? @ -No Drug Therapy requiring intensive monitoring for toxicity (Heparin, Nitro, Insulin, Cardizem)? @ -No Were any procedures done? @ -No Diagnosis/symptom? @ -[Intractable nausea vomiting, urinary tract infection Acute, or Chronic, or Acute on Chronic? @ -[Acute Uncomplicated (without systemic symptoms) or Complicated (systemic symptoms)? @ -default Side effects of treatment? @ -No Exacerbation, Progression, or Severe Exacerbation? @ -No Poses a threat to life or bodily function? How? (Chest pain, USA, MA, pneumonia, PE, COPD, DKA, ARF, appy, cholecystitis, CVA, Diverticulitis, Homicidal, Suicidal, threat to staff... and all critical care pts) @ -[Yes, dehydration, sepsis - Lab Data Result diagrams: 02/03/23 04:02/03/23 04: Lab Results 02/03/23 02/03/23 02/03/23 Range/Units 04: 04: 04:23 WBC 9.5 (3.8-10.6) k/uL RBC 4.40 (3.80-5.40) m/uL Hgb 13.6 (11.4-16.0) gm/dL Hct 42.0 (34.0-46.0) % MCV 95.3 (80.0-100.0) fL MCH 30.8 (25.0-35.0) pg MCHC 32.3 (31.0-37.0) g/dL RDW 13.5 (11.5-15.5) % Plt Count 356 (150-450) k/uL MPV 8.5 Neutrophils % 58 % Lymphocytes % 29 % Monocytes % 6 % Eosinophils % 5 % Basophils % 0 % Neutrophils # 5.5 (1.3-7.7) k/uL Lymphocytes # 2.8 (1.0-4.8) k/uL Monocytes # 0.5 (0-1.0) k/uL Eosinophils # 0.5 (0-0.7) k/uL Basophils # 0.0 (0-0.2) k/uL PT 9.6 (9.0-12.0) sec INR 0.9 (<1.2) APTT 23.1 (22.0-30.0) sec Sodium 139 (137-145) mmol/L Potassium 4.3 (3.5-5.1) mmol/L Chloride 112 H (98-107) mmol/L Carbon Dioxide 12 L (22-30) mmol/L Anion Gap 15 mmol/L BUN 14 (7-17) mg/dL Creatinine 0.60 (0.52-1.04) mg/dL Est GFR (CKD-EPI)AfAm >90 (>60 ml/min/1.73 sqM) Est GFR (CKD-EPI)NonAf >90 (>60 ml/min/1.73 sqM) Glucose 121 H (74-99) mg/dL Plasma Lactic Acid Aleksander (0.7-2.0) mmol/L Calcium 9.5 (8.4-10.2) mg/dL Total Bilirubin 0.5 (0.2-1.3) mg/dL AST 19 (14-36) U/L ALT 16 (4-34) U/L Alkaline Phosphatase 69 (38-126) U/L Troponin I (0.000-0.034) ng/mL Total Protein 7.4 (6.3-8.2) g/dL Albumin 4.6 (3.5-5.0) g/dL Amylase 50 (30-110) U/L Lipase 73 (23-300) U/L Urine Color Urine Appearance (Clear) Urine pH (5.0-8.0) Ur Specific Imbler (1.001-1.035) Urine Protein (Negative) Urine Glucose (UA) (Negative) Urine Ketones (Negative) Urine Blood (Negative) Urine Nitrite (Negative) Urine Bilirubin (Negative) Urine Urobilinogen (<2.0) mg/dL Ur Leukocyte Esterase (Negative) Urine RBC (0-5) /hpf Urine WBC (0-5) /hpf Ur Squamous Epith Cells (0-4) /hpf Urine Bacteria (None) /hpf Hyaline Casts (0-2) /lpf Urine Mucus (None) /hpf Urine HCG, Qual (Not Detectd) 02/03/23 02/03/23 02/03/23 Range/Units 04:23 04:23 06:00 WBC (3.8-10.6) k/uL RBC (3.80-5.40) m/uL Hgb (11.4-16.0) gm/dL Hct (34.0-46.0) % MCV (80.0-100.0) fL MCH (25.0-35.0) pg MCHC (31.0-37.0) g/dL RDW (11.5-15.5) % Plt Count (150-450) k/uL MPV Neutrophils % % Lymphocytes % % Monocytes % % Eosinophils % % Basophils % % Neutrophils # (1.3-7.7) k/uL Lymphocytes # (1.0-4.8) k/uL Monocytes # (0-1.0) k/uL Eosinophils # (0-0.7) k/uL Basophils # (0-0.2) k/uL PT (9.0-12.0) sec INR (<1.2) APTT (22.0-30.0) sec Sodium (137-145) mmol/L Potassium (3.5-5.1) mmol/L Chloride (98-107) mmol/L Carbon Dioxide (22-30) mmol/L Anion Gap mmol/L BUN (7-17) mg/dL Creatinine (0.52-1.04) mg/dL Est GFR (CKD-EPI)AfAm (>60 ml/min/1.73 sqM) Est GFR (CKD-EPI)NonAf (>60 ml/min/1.73 sqM) Glucose (74-99) mg/dL Plasma Lactic Acid Aleksander 1.5 (0.7-2.0) mmol/L Calcium (8.4-10.2) mg/dL Total Bilirubin (0.2-1.3) mg/dL AST (14-36) U/L ALT (4-34) U/L Alkaline Phosphatase (38-126) U/L Troponin I <0.012 (0.000-0.034) ng/mL Total Protein (6.3-8.2) g/dL Albumin (3.5-5.0) g/dL Amylase (30-110) U/L Lipase (23-300) U/L Urine Color Yellow Urine Appearance Cloudy H (Clear) Urine pH 6.0 (5.0-8.0) Ur Specific Imbler 1.026 (1.001-1.035) Urine Protein 1+ H (Negative) Urine Glucose (UA) Negative (Negative) Urine Ketones 1+ H (Negative) Urine Blood Small H (Negative) Urine Nitrite Negative (Negative) Urine Bilirubin Negative (Negative) Urine Urobilinogen <2.0 (<2.0) mg/dL Ur Leukocyte Esterase Large H (Negative) Urine RBC 40 H (0-5) /hpf Urine WBC 105 H (0-5) /hpf Ur Squamous Epith Cells 4 (0-4) /hpf Urine Bacteria Many H (None) /hpf Hyaline Casts 1 (0-2) /lpf Urine Mucus Few H (None) /hpf Urine HCG, Qual (Not Detectd) 02/03/23 Range/Units 06:00 WBC (3.8-10.6) k/uL RBC (3.80-5.40) m/uL Hgb (11.4-16.0) gm/dL Hct (34.0-46.0) % MCV (80.0-100.0) fL MCH (25.0-35.0) pg MCHC (31.0-37.0) g/dL RDW (11.5-15.5) % Plt Count (150-450) k/uL MPV Neutrophils % % Lymphocytes % % Monocytes % % Eosinophils % % Basophils % % Neutrophils # (1.3-7.7) k/uL Lymphocytes # (1.0-4.8) k/uL Monocytes # (0-1.0) k/uL Eosinophils # (0-0.7) k/uL Basophils # (0-0.2) k/uL PT (9.0-12.0) sec INR (<1.2) APTT (22.0-30.0) sec Sodium (137-145) mmol/L Potassium (3.5-5.1) mmol/L Chloride (98-107) mmol/L Carbon Dioxide (22-30) mmol/L Anion Gap mmol/L BUN (7-17) mg/dL Creatinine (0.52-1.04) mg/dL Est GFR (CKD-EPI)AfAm (>60 ml/min/1.73 sqM) Est GFR (CKD-EPI)NonAf (>60 ml/min/1.73 sqM) Glucose (74-99) mg/dL Plasma Lactic Acid Aleksander (0.7-2.0) mmol/L Calcium (8.4-10.2) mg/dL Total Bilirubin (0.2-1.3) mg/dL AST (14-36) U/L ALT (4-34) U/L Alkaline Phosphatase (38-126) U/L Troponin I (0.000-0.034) ng/mL Total Protein (6.3-8.2) g/dL Albumin (3.5-5.0) g/dL Amylase (30-110) U/L Lipase (23-300) U/L Urine Color Urine Appearance (Clear) Urine pH (5.0-8.0) Ur Specific Imbler (1.001-1.035) Urine Protein (Negative) Urine Glucose (UA) (Negative) Urine Ketones (Negative) Urine Blood (Negative) Urine Nitrite (Negative) Urine Bilirubin (Negative) Urine Urobilinogen (<2.0) mg/dL Ur Leukocyte Esterase (Negative) Urine RBC (0-5) /hpf Urine WBC (0-5) /hpf Ur Squamous Epith Cells (0-4) /hpf Urine Bacteria (None) /hpf Hyaline Casts (0-2) /lpf Urine Mucus (None) /hpf Urine HCG, Qual Not Detected (Not Detectd) Disposition Clinical Impression: Pyelonephritis, Intractable nausea and vomiting Disposition: ADMITTED IP TO THIS [facility] Condition: Stable Is patient prescribed a controlled substance at d/c from ED?: No Referrals: None,Stated [Primary Care Provider] - 1-2 days Time of Disposition: 06:45
[2023-02-03] MEDS ORDERED: METOCLOPRAMIDE 5 MG/ML 2 ML VIAL IVP STA (04:55)
[2023-02-03 05:12] LABS: Basophils % (A) 0 %; Eosinophils # (A) 0.5 k/uL (0-0.7); Eosinophils % (A) 5 %; HGB 13.6 gm/dL (11.4-16.0); Lymphocytes # (A) 2.8 k/uL (1.0-4.8); Lymphocytes % (A) 29 %; MCH 30.8 pg (25.0-35.0); MCHC 32.3 g/dL (31.0-37.0); MCV 95.3 fL (80.0-100.0); Mean Platelet Volume 8.5; Monocytes # (A) 0.5 k/uL (0-1.0); Monocytes % (A) 6 %; Neutrophils # (A) 5.5 k/uL (1.3-7.7); Neutrophils % (A) 58 %; Platelet Count 356 k/uL (150-450); RDW 13.5 % (11.5-15.5); WBC 9.5 k/uL (3.8-10.6)
[2023-02-03 05:21] LABS: INR 0.9 (<1.2); Partial Thromboplastin Time 23.1 sec (22.0-30.0); Prothrombin Time 9.6 sec (9.0-12.0)
[2023-02-03 05:26] LABS: ALT 16 U/L (4-34); AST 19 U/L (14-36); African American GFR (CKD) >90 (>60 ml/min/1.73 sqM); Albumin 4.6 g/dL (3.5-5.0); Alkaline Phosphatase 69 U/L (38-126); Amylase 50 U/L (30-110); Anion Gap 15 mmol/L; Blood Urea Nitrogen 14 mg/dL (7-17); Calcium 9.5 mg/dL (8.4-10.2); Carbon Dioxide 12 mmol/L (22-30); Chloride 112 mmol/L (98-107); Glucose 121 mg/dL (74-99); Lipase 73 U/L (23-300); Non-African American GFR(CKD) >90 (>60 ml/min/1.73 sqM); Potassium 4.3 mmol/L (3.5-5.1); Sodium 139 mmol/L (137-145); Total Bilirubin 0.5 mg/dL (0.2-1.3); Total Protein 7.4 g/dL (6.3-8.2)
[2023-02-03 06:25] LABS: Appearance,Urine Cloudy (Clear); Bacteria,Urine Many /hpf; Bilirubin,Urine Negative (Negative); Blood,Urine Small (Negative); Color,Urine Yellow; Glucose,Urine (UA) Negative (Negative); Hyaline Casts,Urine 1 /lpf (0-2); Ketones,Urine 1+ (Negative); Leukocyte Esterase,Urine Large (Negative); Mucus,Urine Few /hpf; Nitrite,Urine Negative (Negative); Protein,Urine 1+ (Negative); RBC,Urine 40 /hpf (0-5); Specific Gravity,Urine 1.026 (1.001-1.035); Squamous Epithelial Cell,Urine 4 /hpf (0-4); Urobilinogen,Urine <2.0 mg/dL (<2.0); WBC,Urine 105 /hpf (0-5)
[2023-02-03] MEDS ORDERED: cefTRIAXone IN SWFI 1,000 MG/10 ML SYRINGE IVP STA (06:28)
[2023-02-03] MEDS ORDERED: HYDROmorphone 0.5 MG/0.5 ML SYRINGE IVP PRN (07:02)
[2023-02-03] MEDS ORDERED: NALOXONE 0.4 MG/ML 1 ML VIAL IV PRN (07:02)
[2023-02-03] MEDS: SODIUM CHLORIDE 0.9% 1,000 ML IV SCH ×3 (07:47→21:50)
[2023-02-03] MEDS: ONDANSETRON 4 MG/2 ML VIAL IVP PRN (16:12)
[2023-02-03] MEDS ORDERED: ACETAMINOPHEN TAB 325 MG TAB PO PRN (18:28)
--- NOTE | 2023-02-03 18:28 | P.HPIM ---
History of Present Illness H&P Date: 02/03/23 Chief Complaint: nausea, vomiting 37-year-old woman with history of recurrent urinary tract infection presented for evaluation of nausea, vomiting. Patient says that starting couple days ago she started to experience more nausea and vomiting. She also had some abdominal pain as well as associated with this. She has had these symptoms before and had previously been treated for urinary tract infection. She denies fevers, chills, chest pain, palpitations, syncopal, presyncope, cough, dyspnea. She reports dysuria. She denies dyschezia, numbness/weakness of extremities. In the emergency room, patient was afebrile, 125/75, heart rate 83, 98% on room air. CBC was unremarkable. Basic metabolic panel showed chloride of 112, CO2 of 12, anion gap of 15. Liver function tests are unremarkable. Lipase was 73, amylase was 50. Troponin is less than 0.012. Coags were unremarkable. UA showed cloudy appearance with 1+ protein, 1+ ketones, small amount of blood, large leukocyte esterase, 40 red blood cells, 105 white blood cells. EKG showed sinus bradycardia cardiac with no evidence of ischemic changes. Case was discussed with the emergency room provider and decision was made to admit the patient observation for further evaluation. All Systems reviewed and pertinent positives and negatives noted in HPI, all other symptoms are negative Gen: in no apparent distress, resting comfortably in bed Eyes: PERRL, no scleral injection or icterus HENT: normocephalic, atraumatic, good hearing acuity, moist mucous membranes Neck: no tracheal deviation, full range of motion Resp: good air exchange, breathing comfortably with no accessory muscle use, no tactile fremitus CVS: good distal perfusion x 4, no pitting edema GI: soft, NTTP, ND, no hepatosplenomegaly : no suprapubic tenderness, no CVAT, wu catheter not present MSK: no clubbing, no cyanosis, no noted contractures of extremities Skin: no noted rashes, petechiae; temperature of skin is appropriate Neuro: moving all extremities without signs of weakness, CN II-XII intact Psych: cooperative, euthymic mood, insight and judgment intact Labs and imaging as above Assessment: Complicated urinary tract infection Nausea, vomiting Non-anion gap metabolic acidosis superimposed on anion gap metabolic acidosis Plan: Vital signs reviewed and noted in the HPI Lab work reviewed and noted in the HPI EKG is personally interpreted and noted in the HPI Case was discussed with the Emergency Room provider and decision was made to admit the patient for urinary tract infection Ceftriaxone 1 g every 24 hours Renal ultrasound IV fluids Follow up urine culture Patient is full code Past Medical History Past Medical History: Asthma Additional Past Medical History / Comment(s): ectopic 2018 History of Any Multi-Drug Resistant Organisms: None Reported Past Surgical History: Section, Tubal Ligation Additional Past Surgical History / Comment(s): section 3. Tubal ligation Past Anesthesia/Blood Transfusion Reactions: No Reported Reaction Past Psychological History: No Psychological Hx Reported Smoking Status: Current every day smoker Past Alcohol Use History: Occasional Past Drug Use History: None Reported - Past Family History Father Family Medical History: No Reported History Medications and Allergies Home Medications Medication Instructions Recorded Confirmed Type No Known Home Medications 02/03/23 02/03/23 History Allergies Allergy/AdvReac Type Severity Reaction Status Date / Time No Known Allergies Allergy Verified 02/03/23 08:05 Physical Exam Osteopathic Statement: *. No significant issues noted on an osteopathic structural exam other than those noted in the History and Physical/Consult. Vitals: Vital Signs Temp Pulse Pulse Resp BP BP Pulse Ox 02/03/23 14:07 98.9 F 83 16 125/75 98 02/03/23 09:51 98.6 F 67 16 155/86 98 02/03/23 08:53 78 18 134/68 99 02/03/23 08:00 16 02/03/23 07:40 68 18 135/74 100 02/03/23 05:45 98.6 F 77 18 134/84 97 02/03/23 03:54 98.2 F 74 16 146/109 98 Intake and Output 02/03/23 02/03/23 02/03/23 06:59 14:59 22:59 Other: # Voids 1 Weight 77.111 kg 77.111 kg Results CBC & Chem 7: 02/03/23 04:23 02/03/23 04:23 Labs: Abnormal Lab Results - Last 24 Hours (Table) 02/03/23 02/03/23 Range/Units 04:23 06:00 Chloride 112 H (98-107) mmol/L Carbon Dioxide 12 L (22-30) mmol/L Glucose 121 H (74-99) mg/dL Urine Appearance Cloudy H (Clear) Urine Protein 1+ H (Negative) Urine Ketones 1+ H (Negative) Urine Blood Small H (Negative) Ur Leukocyte Esterase Large H (Negative) Urine RBC 40 H (0-5) /hpf Urine WBC 105 H (0-5) /hpf Urine Bacteria Many H (None) /hpf Urine Mucus Few H (None) /hpf Thrombosis Risk Factor Assmnt - Choose All That Apply Any of the Below Risk Factors Present?: No
[2023-02-04] MEDS: SODIUM CHLORIDE 0.9% 1,000 ML IV SCH (06:02)
[2023-02-04] MEDS: ONDANSETRON 4 MG/2 ML VIAL IVP PRN (09:33)
[2023-02-04 09:35] LABS: Basophils % (A) 1 %; Eosinophils # (A) 0.2 k/uL (0-0.7); Eosinophils % (A) 3 %; HCT 34.9 % (34.0-46.0); HGB 11.4 gm/dL (11.4-16.0); Lymphocytes # (A) 1.7 k/uL (1.0-4.8); Lymphocytes % (A) 33 %; MCH 30.9 pg (25.0-35.0); MCHC 32.5 g/dL (31.0-37.0); MCV 94.9 fL (80.0-100.0); Mean Platelet Volume 8.4; Monocytes # (A) 0.2 k/uL (0-1.0); Monocytes % (A) 4 %; Neutrophils # (A) 2.9 k/uL (1.3-7.7); Neutrophils % (A) 57 %; Platelet Count 287 k/uL (150-450); RBC 3.68 m/uL (3.80-5.40); RDW 13.4 % (11.5-15.5); WBC 5.1 k/uL (3.8-10.6)
[2023-02-04 16:07] VITALS: BP 115/70; PULSE 74; RESP 18; TEMP 98.8
[2023-02-04 16:07] LABS: Blood Urea Nitrogen 11.9 mg/dL (9.0-27.0); Calcium 8.6 mg/dL (8.7-10.3); Carbon Dioxide 22.2 mmol/L (21.6-31.8); Chloride 109 mmol/L (96-109); Glucose 94 mg/dL (70-110); Magnesium 1.8 mg/dL (1.5-2.4); Potassium 3.6 mmol/L (3.5-5.5); Sodium 141 mmol/L (135-145)
--- NOTE | 2023-02-04 16:26 | P.DS ---
Providers Date of admission: 02/03/23 07:03 Expected date of discharge: 02/04/23 Attending physician: Hannah Anthony MD Primary care physician: Stated None Hospital Course: Assessment: Complicated urinary tract infection Nausea, vomiting Non-anion gap metabolic acidosis superimposed on anion gap metabolic acidosis Hospital Course: 37-year-old woman with history of recurrent urinary tract infection presented for evaluation of nausea, vomiting. In the emergency room, patient was afebrile, 125/75, heart rate 83, 98% on room air. CBC was unremarkable. Basic metabolic panel showed chloride of 112, CO2 of 12, anion gap of 15. Liver function tests are unremarkable. Lipase was 73, amylase was 50. Troponin is less than 0.012. Coags were unremarkable. UA showed cloudy appearance with 1+ protein, 1+ ketones, small amount of blood, large leukocyte esterase, 40 red blood cells, 105 white blood cells. EKG showed sinus bradycardia cardiac with no evidence of ischemic changes. Case was discussed with the emergency room provider and decision was made to admit the patient observation for further evaluation. Pt did well with 2 doses of antibiotics and acidosis corrected with IVF. Pt was discharged home with 3 additional days of cefdinir for total 5 day course. Gen: in no apparent distress, resting comfortably in bed Eyes: PERRL, no scleral injection or icterus HENT: normocephalic, atraumatic, good hearing acuity, moist mucous membranes Neck: no tracheal deviation, full range of motion Resp: good air exchange, breathing comfortably with no accessory muscle use, no tactile fremitus CVS: good distal perfusion x 4, no pitting edema GI: soft, NTTP, ND, no hepatosplenomegaly : no suprapubic tenderness, no CVAT, wu catheter not present MSK: no clubbing, no cyanosis, no noted contractures of extremities Skin: no noted rashes, petechiae; temperature of skin is appropriate Neuro: moving all extremities without signs of weakness, CN II-XII intact Psych: cooperative, euthymic mood, insight and judgment intact Patient Condition at Discharge: Good Plan - Discharge Summary Discharge Rx Participant: Yes New Discharge Prescriptions: New Ondansetron Odt [Zofran Odt] 4 mg PO Q8HR PRN #10 tab PRN Reason: Nausea And Vomiting Cefdinir 300 mg PO Q12HR #86 cap Discharge Medication List Cefdinir 300 mg PO Q12HR #86 cap 02/04/23 [Rx] Ondansetron Odt [Zofran Odt] 4 mg PO Q8HR PRN #10 tab 02/04/23 [Rx] Follow up Appointment(s)/Referral(s): None,Stated [Primary Care Provider] - 1-2 days Discharge Disposition: HOME SELF-CARE
== END 2023-02-04 17:30 | disposition home or self-care (01) ==
LOC: EC 03:44 → 6NMEDSUR 07:03
PROVIDERS: ADMIT Internal Medicine; ATTEND Internal Medicine
DX: N12 Tubulo-interstitial nephritis, not specified as acute or chronic (principal); R11.2 Nausea with vomiting, unspecified; E87.20 Acidosis, unspecified; R00.1 Bradycardia, unspecified; J45.909 Unspecified asthma, uncomplicated; Z98.891 History of uterine scar from previous surgery; Z98.51 Tubal ligation status; F17.200 Nicotine dependence, unspecified, uncomplicated; Z87.440 Personal history of urinary (tract) infections
CPT/HCPCS: 96376 ×3; 96361 ×2; 96365; 96375; 99284; 36415; 93005; 80053; 80048; 82150; 83605; 83690; 83735; 84484; 85025 ×2; 85610; 85730; 81001; 81025; 87086; 87077; 87186; G0378 ×2; J2765; J2405 ×2; J0696 ×2; J1170

== ENCOUNTER 2023-05-07 04:03 | Emergency (ER) | payer OTHER ==
[2023-05-07] MEDS ORDERED: ONDANSETRON 4 MG/2 ML VIAL IVP STA ×2 (04:38→05:29)
[2023-05-07] MEDS ORDERED: HYDROmorphone 1 MG/ML 1 ML SYRINGE IVP STA (04:38)
[2023-05-07 04:51] LABS: Basophils % (A) 0 %; Eosinophils # (A) 0.4 k/uL (0-0.7); Eosinophils % (A) 6 %; HCT 38.2 % (34.0-46.0); HGB 12.1 gm/dL (11.4-16.0); Hypochromasia Moderate; Lymphocytes # (A) 1.4 k/uL (1.0-4.8); Lymphocytes % (A) 18 %; MCH 31.6 pg (25.0-35.0); MCHC 31.6 g/dL (31.0-37.0); MCV 99.9 fL (80.0-100.0); Macrocytosis Slight; Mean Platelet Volume 7.6; Monocytes # (A) 0.4 k/uL (0-1.0); Monocytes % (A) 5 %; Neutrophils # (A) 5.4 k/uL (1.3-7.7); Neutrophils % (A) 70 %; Platelet Count 367 k/uL (150-450); RBC 3.83 m/uL (3.80-5.40); RDW 14.5 % (11.5-15.5); WBC 7.7 k/uL (3.8-10.6)
[2023-05-07] MEDS ORDERED: KETOROLAC 15 MG/ML 1 ML VIAL IVP STA (05:14)
[2023-05-07 05:15] LABS: Glucose 106 mg/dL (74-99)
[2023-05-07 05:16] LABS: ALT 32 U/L (4-34); AST 29 U/L (14-36); African American GFR (CKD) >90 (>60 ml/min/1.73 sqM); Albumin 3.3 g/dL (3.5-5.0); Alkaline Phosphatase 121 U/L (38-126); Amylase 34 U/L (30-110); Anion Gap 11 mmol/L; Blood Urea Nitrogen 19 mg/dL (7-17); Calcium 8.6 mg/dL (8.4-10.2); Carbon Dioxide 21 mmol/L (22-30); Chloride 105 mmol/L (98-107); Lipase 38 U/L (23-300); Non-African American GFR(CKD) >90 (>60 ml/min/1.73 sqM); Potassium 3.9 mmol/L (3.5-5.1); Sodium 137 mmol/L (137-145); Total Bilirubin 0.3 mg/dL (0.2-1.3); Total Protein 5.9 g/dL (6.3-8.2)
[2023-05-07 06:08] LABS: C Reactive Protein 11.9 mg/dL (<1.0)
--- NOTE | 2023-05-07 06:49 | CT ---
EXAMINATION TYPE: CT abdomen pelvis wo con CT DLP: 505.7 mGycm, Automated exposure control for dose reduction was used. DATE OF EXAM: 05/07/2023 5:55 AM COMPARISON: CT abdomen pelvis most recent from 11/23/2022. CLINICAL INDICATION:Female, 38 years old with history of Right sided abdominal pain; TECHNIQUE: Standard CT of the abdomen and pelvis without IV or oral contrast. Lack of IV or oral co ntrast limits evaluation of solid and hollow organ viscera. Coronal and sagittal reformats were perfo rmed. FINDINGS: LOWER CHEST: Unremarkable ABDOMEN LIVER: Unremarkable noncontrast appearance. Suggested Юлия lobe variant. GALLBLADDER AND BILE DUCTS: Mildly distended gallbladder redemonstrated. No biliary ductal dilatation . PANCREAS: Unremarkable noncontrast appearance. SPLEEN: Unremarkable. ADRENAL GLANDS: Unremarkable. KIDNEYS AND URETERS: Mild right hydroureteronephrosis with an obstructive 5 mm calculus within the pr oximal right ureter just past the ureteropelvic junction . Additional nonobstructive 2 adjacent calc kirti within the right lower pole the largest measuring up to 6 cm. No left renal calculi or left hydro nephrosis. PELVIS BLADDER: Unremarkable REPRODUCTIVE: Unremarkable noncontrast appearance. ABDOMEN & PELVIS STOMACH AND BOWEL: Stomach and duodenum are unremarkable. No focal wall thickening or surrounding inf lammatory changes. No evidence of bowel obstruction. Nonvisualization of the appendix however no infl ammatory process seen within the right lower quadrant. PERITONEUM: No evidence of pneumoperitoneum or free fluid. VASCULATURE: No evidence of aortic aneurysm. MUSCULOSKELETAL: No acute osseous abnormalities LYMPH NODES: No gross evidence for lymphadenopathy. SOFT TISSUE/ABDOMINAL WALL: Mild diffuse anasarca. IMPRESSION: 1. Mild right hydroureteronephrosis with an obstructive 5 mm calculus within the proximal right uret er just past the ureteropelvic junction. 2. Additional nonobstructive right renal calculi. 3. Hydropic gallbladder redemonstrated.
[2023-05-07] MEDS ORDERED: METOCLOPRAMIDE 5 MG/ML 2 ML VIAL IVP STA (06:55)
[2023-05-07] MEDS ORDERED: TAMSULOSIN 0.4 MG CAP.ER.24H PO STA (07:14)
--- NOTE | 2023-05-07 08:05 | ED ---
Abdominal Pain HPI - General Chief Complaint: Abdominal Pain Stated Complaint: right side abdominal/back pain Time Seen by Provider: 05/07/23 04:23 Source: patient Mode of arrival: ambulatory - History of Present Illness Initial Comments: Patient is 38-year-old woman who presents to have evaluation of right lower quadrant pain radiating to the flank. Pain is sharp, severe, comes in waves. She also has associated nausea and vomiting. MD Complaint: flank pain -: hour(s) Location: R flank Radiation: none Migration to: no migration Severity: severe Quality: sharp Consistency: constant Improves With: nothing Worsens With: nothing Associated Symptoms: nausea, vomiting - Related Data Previous Rx's Medication Instructions Recorded Cefdinir 300 mg PO Q12HR #86 cap 02/04/23 Ondansetron Odt [Zofran Odt] 4 mg PO Q8HR PRN #10 tab 02/04/23 HYDROcodone/APAP 5-325MG [[place] 1 tab PO Q4HR PRN 3 Days #18 tab 05/07/23 5-325] Ondansetron Odt [Zofran ODT] 4 mg PO Q8HR PRN #10 tab 05/07/23 Tamsulosin [Flomax] 0.4 mg PO DAILY #14 cap 05/07/23 Allergies Allergy/AdvReac Type Severity Reaction Status Date / Time No Known Allergies Allergy Verified 05/07/23 04:14 Review of Systems ROS Statement: Those systems with pertinent positive or pertinent negative responses have been documented in the HPI. ROS Other: All systems not noted in ROS Statement are negative. Constitutional: Denies: fever, chills, weakness Respiratory: Denies: cough, dyspnea Cardiovascular: Denies: chest pain, palpitations Gastrointestinal: Reports: abdominal pain, nausea, vomiting. Denies: diarrhea, constipation, melena, hematochezia Genitourinary: Denies: dysuria, frequency, hematuria Musculoskeletal: Denies: back pain Skin: Denies: rash Neurological: Denies: headache, weakness, numbness Past Medical History Past Medical History: Asthma Additional Past Medical History / Comment(s): ectopic 2018 History of Any Multi-Drug Resistant Organisms: None Reported Past Surgical History: Section, Tubal Ligation Additional Past Surgical History / Comment(s): section 3. Tubal ligation Past Anesthesia/Blood Transfusion Reactions: No Reported Reaction Past Psychological History: No Psychological Hx Reported Smoking Status: Current every day smoker Past Alcohol Use History: Occasional Past Drug Use History: None Reported - Past Family History Father Family Medical History: No Reported History General Exam General appearance: alert, in no apparent distress Head exam: Present: atraumatic, normocephalic Eye exam: Present: normal appearance. Absent: scleral icterus, conjunctival injection ENT exam: Present: normal oropharynx Neck exam: Present: normal inspection Respiratory exam: Present: normal lung sounds bilaterally. Absent: respiratory distress, wheezes, rales, rhonchi, stridor Cardiovascular Exam: Present: regular rate, normal rhythm, normal heart sounds. Absent: systolic murmur, diastolic murmur, rubs, gallop GI/Abdominal exam: Present: soft. Absent: distended, tenderness, guarding, sukh ound, rigid, mass Extremities exam: Present: normal inspection Back exam: Present: normal inspection. Absent: CVA tenderness (R), CVA tenderness (L) Neurological exam: Present: alert Skin exam: Present: warm, dry, intact, normal color. Absent: rash Course Vital Signs 05/07/23 05/07/23 05/07/23 04:10 06:46 08:13 Temperature 97.8 F 98.0 F Pulse Rate 71 74 70 Respiratory 20 18 17 Rate Blood Pressure 141/82 133/80 144/89 O2 Sat by Pulse 95 100 97 Oximetry Medical Decision Making - Medical Decision Making The patient had computed tomography scan of the abdomen and pelvis which I interpreted as showing distal right ureteral stone with hydronephrosis Was pt. sent in by a medical professional or institution (, PA, PATIENT REGISTRATION SUPERVISOR, urgent care, hospital, or fpc...) When possible be specific @ -[No] Did you speak to anyone other than the patient for history (EMS, parent, family, police, friend...)? What history was obtained from this source @ -[No] Did you review nursing and triage notes (agree or disagree)? Why? @ -[I reviewed and agree with nursing and triage notes] Were old charts reviewed (outside hosp., previous admission, EMS record, old EKG, old radiological studies, urgent care reports/EKG's, fpc records)? Report findings @ -[No old charts were reviewed] Differential Diagnosis (chest pain, altered mental status, abdominal pain women, abdominal pain men, vaginal bleeding, weakness, fever, dyspnea, syncope, headache, dizziness, GI bleed, back pain, seizure, CVA, palpatations, mental health, musculoskeletal)? @ -[Differential Abdominal Pain Women: Appendicitis, Cholecystitis, diverticulosis, ischemic bowel, pancreatitis, hepatitis, UTI, gastroenteritis, AAA, incarcerated hernia, bowel obstruction, constipation, inflammatory bowel, hepatitis, peptic ulcer disease, splenic infarction, perforated viscus, vulvitis, ovarian torsion, PID, kidney stone, placenta abruption, this is not meant to be an all-inclusive list EKG interpreted by me (3pts min.). @ -[As above] X-rays interpreted by me (1pt min.). @ -[None done] CT interpreted by me (1pt min.). @ -[I interpreted as above U/S interpreted by me (1pt. min.). @ -[None done] What testing was considered but not performed or refused? (CT, X-rays, U/S, labs)? Why? @ -[None] What meds were considered but not given or refused? Why? @ -[None] Did you discuss the management of the patient with other professionals (professionals i.e. , PA, PATIENT REGISTRATION SUPERVISOR, lab, RT, psych nurse, social worker clinical, emr analyst, teacher, aoc airspace control officer, case liner)? Give summary @ -[No] Was smoking cessation discussed for >3mins.? @ -[No] Was critical care preformed (if so, how long)? @ -[No] Were there social determinants of health that impacted care today? How? (H omelessness, low income, unemployed, alcoholism, drug addiction, transportation, low edu. Level, literacy, decrease access to med. care, halfway, rehab)? @ -[No] Was there de-escalation of care discussed even if they declined (Discuss DNR or withdrawal of care, Hospice)? DNR status @ -[No] What co-morbidities impacted this encounter? (DM, HTN, Smoking, COPD, CAD, Cancer, CVA, ARF, Chemo, Hep., AIDS, mental health diagnosis, sleep apnea, morbid obesity)? @ -[None] Was patient admitted / discharged? Hospital course, mention meds given and route, prescriptions, significant lab abnormalities, going to OR and other pertinent info. @ -[Patient is 38-year-old woman with flank pain. History and physical suggestive of kidney stone and the computed tomography scan does confirm this diagnosis. The patient is feeling better following medications here, and appears stable for outpatient management. We discussed appropriate further care and follow-up as well as return parameters. Undiagnosed new problem with uncertain prognosis? @ -[No] Drug Therapy requiring intensive monitoring for toxicity (Heparin, Nitro, Insulin, Cardizem)? @ -[No] Were any procedures done? @ -[No] Diagnosis/symptom? @ -[Acute nephrolithiasis with hydronephrosis Acute, or Chronic, or Acute on Chronic? @ -[Acute Uncomplicated (without systemic symptoms) or Complicated (systemic symptoms)? @ -[Uncomplicated Side effects of treatment? @ -[No] Exacerbation, Progression, or Severe Exacerbation? @ -[No] Poses a threat to life or bodily function? How? (Chest pain, USA, MS, pneumonia, PE, COPD, DKA, ARF, appy, cholecystitis, CVA, Diverticulitis, Homicidal, Suicidal, threat to staff... and all critical care pts) @ -[No] - Lab Data Result diagrams: 05/07/23 04:27 05/07/23 04:27 Lab Results 05/07/23 05/07/23 Range/Units 04:27 04:27 WBC 7.7 (3.8-10.6) k/uL RBC 3.83 (3.80-5.40) m/uL Hgb 12.1 (11.4-16.0) gm/dL Hct 38.2 (34.0-46.0) % MCV 99.9 (80.0-100.0) fL MCH 31.6 (25.0-35.0) pg MCHC 31.6 (31.0-37.0) g/dL RDW 14.5 (11.5-15.5) % Plt Count 367 (150-450) k/uL MPV 7.6 Neutrophils % 70 % Lymphocytes % 18 % Monocytes % 5 % Eosinophils % 6 % Basophils % 0 % Neutrophils # 5.4 (1.3-7.7) k/uL Lymphocytes # 1.4 (1.0-4.8) k/uL Monocytes # 0.4 (0-1.0) k/uL Eosinophils # 0.4 (0-0.7) k/uL Basophils # 0.0 (0-0.2) k/uL Hypochromasia Moderate Macrocytosis Slight Sodium 137 (137-145) mmol/L Potassium 3.9 (3.5-5.1) mmol/L Chloride 105 (98-107) mmol/L Carbon Dioxide 21 L (22-30) mmol/L Anion Gap 11 mmol/L BUN 19 H (7-17) mg/dL Creatinine 0.78 (0.52-1.04) mg/dL Est GFR (CKD-EPI)AfAm >90 (>60 ml/min/1.73 sqM) Est GFR (CKD-EPI)NonAf >90 (>60 ml/min/1.73 sqM) Glucose 106 H (74-99) mg/dL Calcium 8.6 (8.4-10.2) mg/dL Total Bilirubin 0.3 (0.2-1.3) mg/dL AST 29 (14-36) U/L ALT 32 (4-34) U/L Alkaline Phosphatase 121 (38-126) U/L C-Reactive Protein 11.9 H (<1.0) mg/dL Total Protein 5.9 L (6.3-8.2) g/dL Albumin 3.3 L (3.5-5.0) g/dL Amylase 34 (30-110) U/L Lipase 38 (23-300) U/L Disposition Clinical Impression: Kidney stone on right side Disposition: HOME SELF-CARE Condition: Good Instructions (If sedation given, give patient instructions): Kidney Stones (ED) Prescriptions: Tamsulosin [Flomax] 0.4 mg PO DAILY #14 cap HYDROcodone/APAP 5-325MG [[place] 5-325] 1 tab PO Q4HR PRN 3 Days #18 tab PRN Reason: Pain Ondansetron Odt [Zofran ODT] 4 mg PO Q8HR PRN #10 tab PRN Reason: Nausea Is patient prescribed a controlled substance at d/c from ED?: Yes When asked, does pt state using other controlled substances?: No If prescribed controlled substance>3 days was MAPS reviewed?: Prescribed <3 Days If opioid is for acute pain is fill amount 7 days or less?: Yes If Rx opioid, was Start Talking consent form obtained?: Yes Referrals: Boy Smith MD [Primary Care Provider] - 1-2 days Geovanny Betancourt MD [STAFF PHYSICIAN] - 1-2 days
[2023-05-07 08:13] VITALS: BP 144/89; PULSE 70; RESP 17; TEMP 98
== END 2023-05-07 08:16 | disposition home or self-care (01) ==
LOC: EC 04:03
DX: N13.2 Hydronephrosis with renal and ureteral calculous obstruction (principal); J45.909 Unspecified asthma, uncomplicated; F17.200 Nicotine dependence, unspecified, uncomplicated
CPT/HCPCS: 36415; 80053; 82150; 83690; 85025; 86140; 74176; 99284; 96374; 96375 ×3; 96376; J2765; J2405; J1170; J1885

== ENCOUNTER → 2024-04-23 | Outpatient (CLI) | payer OTHER ==
--- NOTE | 2024-04-23 19:39 | CT ---
EXAMINATION TYPE: CT abdomen pelvis wo con DATE OF EXAM: 04/23/2024 4:34 PM COMPARISON: CT abdomen pelvis most recent from 05/07/2023 CLINICAL INDICATION: Female, 39 years old with history of D64.9 ANEMIA T14.8XXA CONTUSION HEMATOMA; f /u hematoma on low back pain TECHNIQUE: Axial CT abdomen pelvis wo con;Sagittal and coronal reformats were created on a separate workstation. Contrast used: mL of , (none if empty) Oral contrast used: without Oral Contrast (none if empty) CT DLP: 638 mGycm, Automated exposure control for dose reduction was used. FINDINGS: LOWER CHEST: Unremarkable ABDOMEN LIVER: Unremarkable GALLBLADDER AND BILE DUCTS: Unremarkable. PANCREAS: Unremarkable. SPLEEN: Unremarkable. ADRENAL GLANDS: Unremarkable. KIDNEYS AND URETERS: No evidence of hydronephrosis or renal calculus. The ureters are unremarkable. PELVIS BLADDER: No evidence for wall thickening or mass given limitations of exam. REPRODUCTIVE: Tampon is in the vagina. ABDOMEN & PELVIS STOMACH AND BOWEL: No evidence of bowel obstruction. PERITONEUM/RETROPERITONEUM: No evidence of pneumoperitoneum or free fluid. VASCULATURE: No evidence of aortic aneurysm. MUSCULOSKELETAL: No acute osseous abnormalities LYMPH NODES: No gross evidence for lymphadenopathy. SOFT TISSUE/ABDOMINAL WALL: Fluid collection the low back projecting over the sacrum measuring up to 41 x 15 x 57 mm and measures 18 Hounsfield units. IMPRESSION: 1. Small fluid collection in the subcutaneous tissues projecting over the sacrum. Finding could repr esents resolving hematoma versus seroma versus other. No recent priors for comparison. 2. No acute intra-abdominal process. [facility], , 04/23/2024 7:36 PM
== END | disposition home or self-care (01) ==
LOC: RADCTMAIN 16:02
PROVIDERS: ATTEND Internal Medicine
DX: D64.9 Anemia, unspecified
CPT/HCPCS: 74176

== ENCOUNTER 2024-06-19 21:52 | Emergency (ER) | payer OTHER ==
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
[2024-06-19] MEDS: LIDOCAINE 1% INJ 10MG/ML (20 ML MDV) SQ ONE (23:16)
[2024-06-20] MEDS: DIPH,PERTUS(ACELL)TETVAC-LF 0.5 ML VIAL IM ONE (00:01)
[2024-06-20 00:27] VITALS: BP 141/96; PULSE 71; RESP 16; TEMP 98
== END 2024-06-20 00:27 | disposition home or self-care (01) ==
LOC: EC 21:52
DX: S61.012A Laceration without foreign body of left thumb without damage to nail, initial encounter (principal); F17.200 Nicotine dependence, unspecified, uncomplicated; Z23 Encounter for immunization; W26.0XXA Contact with knife, initial encounter
CPT/HCPCS: 99282; 90471; 12002; J2003; 90715